=== PATIENT | female | born 1980 | race African-American/Black ===

== ENCOUNTER 2016-06-15 12:36 | Emergency (ER) | payer MEDICAID ==
[2016-06-15] MEDS ORDERED: NORMAL SALINE 1000 ML 1,000 ML IV PRN (13:48)
--- NOTE | 2016-06-15 13:48 | ER Document Report ---
ED Medical Screen (RME) - General Chief Complaint: Flank Pain Stated Complaint: NAUSEA,BACK PAIN,RIGHT SIDE PAIN Time seen by provider: 13:47 Mode of Arrival: Ambulatory Information source: Patient Notes: This is a 35-year-old female that presents to the emergency room with right flank pain radiating down into her groin. She denies any fever, positive chills TRAVEL OUTSIDE OF THE [place] IN LAST 30 DAYS: No - HPI Onset: Last week Onset/Duration: Gradual Quality of pain: Sharp Severity: Moderate Pain Level: 2 Associated Symptoms: denies: Chest pain, Dysuria, Sinus pain/drainage Exacerbated by: Denies Relieved by: Denies Similar symptoms previously: No Recently seen / treated by doctor: No - Related Data Smoking: Non-smoker Frequency of alcohol use: None Drug Abuse: None Allergies/Adverse Reactions: amoxicillin [Amoxicillin] Allergy (Verified 06/15/16 12:54) omeprazole [From Prilosec] Allergy (Verified 06/15/16 12:54) omeprazole magnesium [From Prilosec] Allergy (Verified 06/15/16 12:54) Past Medical History - General Information source: Patient - Social History Cigarette use (# per day): No Chew tobacco use (# tins/day): No Frequency of alcohol use: None Drug Abuse: None Lives with: Family Family history: Reviewed & Not Pertinent - Past Medical History Cardiac Medical History: Reports: Hx Congestive Heart Failure, Hx Hypertension Pulmonary Medical History: Reports: Hx Pneumonia Renal/ Medical History: Reports: Hx Ectopic . Denies: Hx Peritoneal Dialysis GI Medical History: Reports: Hx Gastroesophageal Reflux Disease Past Surgical History: Reports: Hx Cholecystectomy, Hx Gynecologic Surgery - right salpingectomy, Hx Tonsillectomy - adenoids, Hx Tubal Ligation - Immunizations Immunizations up to date: Yes Hx Diphtheria, Pertussis, Tetanus Vaccination: Yes - UTD Review of Systems - Review of Systems Constitutional: denies: Chills, Fever EENT: No symptoms reported Cardiovascular: No symptoms reported Respiratory: No symptoms reported Gastrointestinal: See HPI. denies: Abdomen distended, Diarrhea, Nausea, Vomiting, Poor fluid intake, Black stools, Rectal bleeding, Last bowel movement Genitourinary: Flank pain Female Genitourinary: No symptoms reported Musculoskeletal: See HPI Skin: No symptoms reported Hematologic/Lymphatic: No symptoms reported Neurological/Psychological: No symptoms reported Physical Exam - Vital signs Vitals: Temp Pulse Resp BP Pulse Ox 99.0 F 78 20 173/113 H 98 06/15/16 12:58 06/15/16 12:58 06/15/16 12:58 06/15/16 12:58 06/15/16 12:58 Notes: Physical exam: GENERAL: 35-year-old female, alert and oriented 3, no acute distress. Patient looks quite good. HEAD: Atraumatic, normocephalic. EYES: Pupils equal round and reactive to light, extraocular movements intact, sclera anicteric, conjunctiva are normal. ENT: TMs normal, nares patent, oropharynx clear without exudates. Moist mucous membranes. NECK: Normal range of motion, supple without lymphadenopathy or JVD. LUNGS: Breath sounds clear to auscultation bilaterally and equal. No wheezes rales or rhonchi. HEART: Regular rate and rhythm without murmurs, rubs or gallops. ABDOMEN: Soft, normoactive bowel sounds. No tenderness to palpation. No guarding, no rebound. No masses appreciated. Mild right CVA tenderness. EXTREMITIES: Normal range of motion, no pitting or edema. No clubbing or cyanosis. NEUROLOGICAL: Cranial nerves II through XII grossly intact. Normal speech, normal gait. PSYCH: Normal mood, normal affect. SKIN: Warm, Dry, normal turgor, no rashes or lesions noted. Course - Re-evaluation Re-evalutation: 06/15/16 16:55 Patient is been ambulating around the ER without difficulty. She does look good. I did discuss the results of the CT scan which shows no evidence of obstructive uropathy. I did tell her that the CAT scan can sometimes miss small stones so we will treat with pain medicines and encourage fluids. We did recheck her blood pressure and it's still elevated and I discussed the issue of blood pressure medicine and we will put her back on a blood pressure medicine today. She will follow-up with the [place] primary care. - Vital Signs Vital signs: Temp Pulse Resp BP Pulse Ox 98.5 F 76 18 162/102 H 100 06/15/16 16:54 06/15/16 16:54 06/15/16 16:54 06/15/16 16:54 06/15/16 16:54 - Laboratory Result Diagrams: 06/15/16 13:50 06/15/16 15:00 Laboratory results interpreted by me: 06/15/16 06/15/16 06/15/16 13:50 13:50 15:00 RDW 14.3 H Chloride 108 H Ur Leukocyte Esterase TRACE H - Diagnostic Test Radiology reviewed: Image reviewed, Reports reviewed - CT shows no obstructive uropathy. Doctor's Discharge - Discharge Clinical Impression: flank pain, hypertension Condition: Stable Disposition: HOME, SELF-CARE Instructions: Flank Pain ([facility]), High Blood Pressure ([facility]) Additional Instructions: Recommendations: Rest, drink plenty of fluids. Take pain medicine as needed: See the narcotic instruction sheet. Also take ibuprofen as needed. As we discussed, I want you to restart your blood pressure medicine. Follow-up with your primary care doctor at [facility]: Bring a copy of today's lab work and CT report with you. Return to the emergency room for any worsening pain or if the pain localizes to the right lower abdomen, fever (temperature greater than 100.5 or any concerns he getting worse. The pain medicine you're taking prescribed as a narcotic. There are several important things you should know about this medicine: 1. This medicine contains Tylenol: It is important that you do not take Tylenol (or acetaminophen) while on this medicine. Tylenol is metabolized by the liver and taking too much Tylenol (acetaminophen) can lay to liver damage and even liver failure. 2. Taking narcotics for too long can lead to physical and mental dependence. Take this medicine only if really needed and in the lowest quantity to achieve pain relief. 3. Do not drink alcohol while on this medicine. Alcohol interacts with narcotics and the combination can be dangerous. 4. Do not drive or operate machinery while on this medicine. 5. Narcotics do cause constipation, so drink plenty of fluids and daily stool softeners. Prescriptions: Lisinopril/Hydrochlorothiazide [Lisinopril-Hctz 10-12.5 mg Tab] 1 each PO DAILY #30 tablet Ondansetron HCl [Zofran 4 mg Tablet] 1 - 2 tab PO Q4H PRN #10 tablet PRN Reason: Oxycodone HCl/Acetaminophen [Percocet 5-325 mg Tablet] 1 - 2 tab PO ASDIR PRN # 25 tablet PRN Reason:
[2016-06-15 14:25] LABS: ABSOLUTE BASOPHILS # (AUTO) 0.1 10^3/uL (0.0-0.2); ABSOLUTE EOSINOPHILS # (AUTO) 0.1 10^3/uL (0.0-0.6); ABSOLUTE LYMPHOCYTES (AUTO) 3.6 10^3/uL (0.5-4.7); ABSOLUTE MONOCYTES (AUTO) 0.7 10^3/uL (0.1-1.4); ABSOLUTE NEUT (AUTO) 5.4 10^3/uL (1.7-8.2); BASOPHILS % (AUTO) 1.1 % (0-2); EOSINOPHILS % (AUTO) 1.2 % (0-6); HEMATOCRIT 40.8 % (36.0-47.0); HEMOGLOBIN 13.6 g/dL (12.0-15.5); LYMPHOCYTES % (AUTO) 36.6 % (13-45); MEAN CORPUSCULAR HEMOGLOBIN 29.3 pg (27.0-33.4); MEAN CORPUSCULAR HGB CONC 33.4 g/dL (32.0-36.0); MEAN CORPUSCULAR VOLUME 88 fl (80-97); MONOCYTES % (AUTO) 6.8 % (3-13); RED BLOOD COUNT 4.65 10^6/uL (3.72-5.28); RED CELL DISTRIBUTION WIDTH 14.3 % (11.5-14.0); SEGMENTED NEUTROPHILS % (AUTO) 54.3 % (42-78); WHITE BLOOD COUNT 9.9 10^3/uL (4.0-10.5)
[2016-06-15 14:34] LABS: APPEARANCE,URINE SLIGHTLY-CLOUDY; BILIRUBIN,URINE NEGATIVE (NEGATIVE); GLUCOSE, URINE NEGATIVE (NEGATIVE); KETONES,URINE NEGATIVE (NEGATIVE); LEUKOCYTE ESTERASE,URINE TRACE (NEGATIVE); NITRITE,URINE NEGATIVE (NEGATIVE); PROTEIN,URINE NEGATIVE (NEGATIVE); URINE SPECIFIC GRAVITY 1.027; UROBILINOGEN,URINE NEGATIVE mg/dL (<2.0)
[2016-06-15 15:34] LABS: ALANINE AMINOTRANSFERASE 23 U/L (9-52); ALBUMIN 3.9 g/dL (3.5-5.0); ALKALINE PHOSPHATASE 65 U/L (38-126); ANION GAP 11 (5-19); ASPARTATE AMINO TRANSFERASE 19 U/L (14-36); BILIRUBIN,DIRECT 0.4 mg/dL (0.0-0.4); BILIRUBIN,TOTAL 0.6 mg/dL (0.2-1.3); BLOOD UREA NITROGEN 11 mg/dL (7-20); CARBON DIOXIDE 23 mmol/L (22-30); CHLORIDE 108 mmol/L (98-107); GLUCOSE 88 mg/dL (75-110); POTASSIUM 4.7 mmol/L (3.6-5.0); SODIUM 141.5 mmol/L (137-145); TOTAL PROTEIN 7.6 g/dL (6.3-8.2)
[2016-06-15 16:01] LABS: CALCIUM 9.4 mg/dL (8.4-10.2)
[2016-06-15] MEDS ORDERED: OXYCODONE-ACETAMINOPHEN 5-325 MG TABLET PO ONE (16:12)
[2016-06-15] MEDS ORDERED: ONDANSETRON 4 MG TAB.RAPDIS PO ONE (16:12)
[2016-06-15 16:54] VITALS: BP 162/102
== END 2016-06-15 17:04 | disposition home or self-care (01) ==
LOC: ER 12:36
DX: R10.9 Unspecified abdominal pain (principal); I10 Essential (primary) hypertension; Z88.0 Allergy status to penicillin; Z88.8 Allergy status to other drugs, medicaments and biological substances; Z87.19 Personal history of other diseases of the digestive system; Z98.51 Tubal ligation status; Z90.79 Acquired absence of other genital organ(s); Z90.49 Acquired absence of other specified parts of digestive tract
CPT/HCPCS: 99284; 96360; 36415; 84702; 85025; 80053; 81001; 76380; S0119; J7030

== ENCOUNTER 2016-07-23 13:35 | Emergency (ER) | payer MEDICAID ==
[2016-07-23 13:41] VITALS: BP 163/109
--- NOTE | 2016-07-23 13:50 | ER Document Report ---
ED Medical Screen (RME) - General Chief Complaint: Breathing Difficulty Stated Complaint: DIFFICULTY BREATHING Time Seen by Provider: 07/23/16 13:44 Notes: A 35-year-old female patient who has the Mirena IUD reports 4 day history of chest pain made worse lying down on her left side, worse with breathing, worse with cough. She was seen in urgent care on Tuesday and prescribed a Z-Paco, prednisone, albuterol. I have greeted and performed a rapid initial assessment of this patient. A comprehensive ED assessment and evaluation of the patient, analysis of test results and completion of the medical decision making process will be conducted by additional ED providers. TRAVEL OUTSIDE OF THE [place] IN LAST 30 DAYS: No - Related Data Allergies/Adverse Reactions: amoxicillin [Amoxicillin] Allergy (Verified 07/23/16 13:38) omeprazole [From Prilosec] Allergy (Verified 07/23/16 13:38) omeprazole magnesium [From Prilosec] Allergy (Verified 07/23/16 13:38) Past Medical History - Social History Family history: Reviewed & Not Pertinent - Past Medical History Cardiac Medical History: Reports: Hx Congestive Heart Failure, Hx Hypertension Pulmonary Medical History: Reports: Hx Pneumonia Renal/ Medical History: Reports: Hx Ectopic . Denies: Hx Peritoneal Dialysis GI Medical History: Reports: Hx Gastroesophageal Reflux Disease Past Surgical History: Reports: Hx Cholecystectomy, Hx Gynecologic Surgery - right salpingectomy, Hx Tonsillectomy - adenoids, Hx Tubal Ligation - Immunizations Immunizations up to date: Yes Hx Diphtheria, Pertussis, Tetanus Vaccination: Yes - UTD Physical Exam - Vital signs Vitals: Temp Pulse Resp BP Pulse Ox 97.8 F 100 20 163/109 H 100 07/23/16 13:38 07/23/16 13:38 07/23/16 13:38 07/23/16 13:38 07/23/16 13:38 Course - Vital Signs Vital signs: Temp Pulse Resp BP Pulse Ox 97.8 F 100 20 163/109 H 100 07/23/16 13:38 07/23/16 13:38 07/23/16 13:38 07/23/16 13:38 07/23/16 13:38
--- NOTE | 2016-07-23 14:33 | RADIOLOGY REPORT (SQ) ---
EXAM DESCRIPTION: CHEST PA/LAT COMPLETED DATE/TIME: 07/23/2016 2:17 pm REASON FOR STUDY: Pleuritic chest pain with cough and SOB COMPARISON: None. EXAM PARAMETERS: NUMBER OF VIEWS: two views TECHNIQUE: Digital Frontal and Lateral radiographic views of the chest acquired. RADIATION DOSE: NA LIMITATIONS: none FINDINGS: LUNGS AND PLEURA: No opacities, masses or pneumothorax. No pleural effusion. MEDIASTINUM AND HILAR STRUCTURES: No masses or contour abnormalities. HEART AND VASCULAR STRUCTURES: Heart normal size. No evidence for failure. BONES: No acute findings. HARDWARE: None in the chest. OTHER: No other significant finding. IMPRESSION: NO SIGNIFICANT RADIOGRAPHIC FINDING IN THE CHEST. TECHNICAL DOCUMENTATION: JOB ID: [id number] [employer]- All Rights Reserved
--- NOTE | 2016-07-23 16:50 | ER Document Report ---
ED Respiratory Problem - General Chief Complaint: Breathing Difficulty Stated Complaint: DIFFICULTY BREATHING Time Seen by Provider: 07/23/16 13:44 Mode of Arrival: Ambulatory Information source: Patient Notes: 35-year-old patient presents to ED for chest pain made worse when she lays down on the left side. She was seen at the urgent care on Tuesday and prescribed a Z-Paco prednisone and albuterol TRAVEL OUTSIDE OF THE [place] IN LAST 30 DAYS: No - HPI Patient complains to provider of: Cough, Short of breath Onset: Other - 4- 5 days Duration: Continuous Initiating Event: URI Quality of pain: Achy Severity: Moderate Pain Level: 4 Chest pain/discomfort: Worse with deep breaths Cough: Nonproductive Sputum amount: None Associated symptoms: Congestion, Cough, PND, Runny nose, Sinus pain/pressure, Short of breath. denies: Fever Similar symptoms previously: Yes Recently seen / treated by doctor: Yes - Related Data Allergies/Adverse Reactions: amoxicillin [Amoxicillin] Allergy (Verified 07/23/16 13:38) omeprazole [From Prilosec] Allergy (Verified 07/23/16 13:38) omeprazole magnesium [From Prilosec] Allergy (Verified 07/23/16 13:38) Past Medical History - General Information source: Patient - Social History Smoking Status: Current Every Day Smoker Cigarette use (# per day): Yes - ppd Chew tobacco use (# tins/day): No Smoking Education Provided: Yes - @ 2 min Frequency of alcohol use: None Drug Abuse: None Lives with: Family - children Family History: Reviewed & Not Pertinent Patient has suicidal ideation: No Patient has homicidal ideation: No - Past Medical History Cardiac Medical History: Reports: Hx Congestive Heart Failure - at childbirth, Hx Hypertension Pulmonary Medical History: Reports: Hx Pneumonia EENT Medical History: Reports: None Neurological Medical History: Reports: None Endocrine Medical History: Reports: None Renal/ Medical History: Reports: Hx Ectopic Malignancy Medical History: Reports: None GI Medical History: Reports: Hx Gastroesophageal Reflux Disease Musculoskeltal Medical History: Reports None Skin Medical History: Reports None Psychiatric Medical History: Reports: None Traumatic Medical History: Reports: None Infectious Medical History: Reports: None Past Surgical History: Reports: Hx Cholecystectomy, Hx Gynecologic Surgery - right salpingectomy due to hemorrhage from tubal ligation, Hx Tonsillectomy - adenoids, Hx Tubal Ligation - Immunizations Immunizations up to date: Yes Hx Diphtheria, Pertussis, Tetanus Vaccination: Yes - UTD Review of Systems - Review of Systems Constitutional: Recent illness EENT: Nose discharge, Sinus pressure, Sinus discharge, Throat pain Cardiovascular: No symptoms reported Respiratory: Cough Gastrointestinal: No symptoms reported Genitourinary: No symptoms reported Female Genitourinary: No symptoms reported Musculoskeletal: No symptoms reported Skin: No symptoms reported Hematologic/Lymphatic: No symptoms reported Neurological/Psychological: No symptoms reported -: Yes All other systems reviewed and negative Physical Exam - Vital signs Vitals: Temp Pulse Resp BP Pulse Ox 97.8 F 100 20 163/109 H 100 07/23/16 13:38 07/23/16 13:38 07/23/16 13:38 07/23/16 13:38 07/23/16 13:38 Interpretation: Hypertensive - General General appearance: Appears well, Alert - HEENT Head: Normocephalic, Atraumatic Eyes: Normal Pupils: PERRL - Respiratory Respiratory status: No respiratory distress Chest status: Tender, Pain with cough Breath sounds: Nonproductive cough. No: Productive cough, Rales, Rhonchi, Stridor, Wheezing Chest palpation: Normal - Cardiovascular Rhythm: Regular Heart sounds: Normal auscultation Murmur: No - Abdominal Inspection: Normal Distension: No distension Bowel sounds: Normal Tenderness: Nontender Organomegaly: No organomegaly - Back Back: Normal, Nontender - Extremities General upper extremity: Normal inspection, Nontender, Normal color, Normal ROM , Normal temperature General lower extremity: Normal inspection, Nontender, Normal color, Normal ROM , Normal temperature, Normal weight bearing. No: Lei's sign - Neurological Neuro grossly intact: Yes Cognition: Normal Orientation: AAOx4 Torri Coma Scale Eye Opening: Spontaneous Torri Coma Scale Verbal: Oriented Torri Coma Scale Motor: Obeys Commands [place] Coma Scale Total: 15 Speech: Normal Motor strength normal: LUE, RUE, LLE, RLE Sensory: Normal - Psychological Associated symptoms: Normal affect, Normal mood - Skin Skin Temperature: Warm Skin Moisture: Dry Skin Color: Normal Course - Re-evaluation Re-evalutation: 07/23/16 21:59 Discussed x-ray with patient report given to patient to follow-up with her primary doctor. X-ray showed nothing acute. Patient instructed to complete her medications that the doctor prescribed her. - Vital Signs Vital signs: Temp Pulse Resp BP Pulse Ox 97.8 F 100 20 163/109 H 100 07/23/16 13:38 07/23/16 13:38 07/23/16 13:38 07/23/16 13:38 07/23/16 13:38 - Diagnostic Test Radiology reviewed: Image reviewed, Reports reviewed Discharge - Discharge Clinical Impression: URI (upper respiratory infection) Qualifiers: URI type: unspecified URI Qualified Code(s): J06.9 - Acute upper respiratory infection, unspecified Condition: Stable Disposition: HOME, SELF-CARE Instructions: Family Physicians / Practices Additional Instructions: UPPER RESPIRATORY ILLNESS: You have a viral infection of the respiratory passages -- a "cold." This common infection causes nasal congestion, drainage, and often sore throat and cough. It is highly contagious. The disease usually lasts about 10 to 14 days. There is no "cure" for the viral infection -- it must run its course. If there is a complication, such as bacterial infection in the nose, sinuses, middle ear, or bronchial tubes, antibiotics may be required. The antibiotics won't affect the virus. Drink plenty of fluids. A humidifier may help. An expectorant medication or decongestant may make you more comfortable. Use acetaminophen or ibuprofen for fever or aches. See the doctor if fever persists over two days, if there is any significant worsening of your symptoms, or if you simply fail to improve as expected. Acetaminophen Acetaminophen may be taken for pain relief or fever control. It's much safer than aspirin, offering a wider range of "safe" dosages. It is safe during . Some brand names are Tylenol, Panadol, Datril, Anacin 3, Tempra, and Liquiprin. Acetaminophen can be repeated every four hours. The following are maximum recommended dosages: WEIGHT Dose Drops Elixir Chewable( 80mg) (LBS.) drprs=droppers tsp=teaspoon 6 40 mg .4 ml (1/2) 6-11 80 mg .8 ml (full) 1/2 tsp 1 tab 12-16 120 mg 1 1/2 drprs 3/4 tsp 1 1/2 tabs 17-23 160 mg 2 drprs 1 tsp 2 tabs 24-30 240 mg 3 drprs 1 1/2 tsp 3 tabs 30-35 320 mg 2 tsp 4 tabs 36-41 360 mg 2 1/4 tsp 4 1 /2 tabs 42-47 400 mg 2 1/2 tsp 5 tabs 48-53 480 mg 3 tsp 6 tabs 54-59 520 mg 3 1/4 tsp 6 1 /2 tabs 60-64 560 mg 3 1/2 tsp 7 tabs 65-70 600 mg 3 3/4 tsp 7 1 /2 tabs 71-76 640 mg 4 tsp 8 tabs 77-82 720 mg 4 1/2 tsp 9 tabs 83-88 800 mg 5 tsp 10 tabs >89 pounds or adults 650 mg to 900 mg Acetaminophen can be repeated every four hours. Maximum daily dose not to exceed 4000 mg. These maximum recommended dosages are slightly higher than the dosages written on the product container, but these dosages are very safe and well below the toxic dosage for acetaminophen. SMOKING: If you smoke, you should stop smoking. The tar and chemicals in cigarette smoke are harmful. Smoking has been shown to cause: emphysema chronic bronchitis lung cancer mouth and throat cancer stomach and pancreas cancer premature aging defects In addition, smoking increases ear and lung infections in children of smokers. Please continue to take your Z-Paco prednisone and albuterol inhaler as prescribed by the urgent care on Tuesday. Please complete your antibiotics and your prednisone. Follow-up with the urgent care or Tuesday if you continue to have a cough. Follow up with your primary doctor for your blood pressure on Tuesday please smoke as little as possible and tell then refrain from caffeine. FOLLOW-UP CARE: If you have been referred to a physician for follow-up care, call the physician s office for an appointment as you were instructed or within the next two days. If you experience worsening or a significant change in your symptoms, notify the physician immediately or return to the Emergency Department at any time for re-evaluation. Forms: Elevated Blood Pressure
== END 2016-07-23 16:26 | disposition home or self-care (01) ==
LOC: ER 13:35
DX: J06.9 Acute upper respiratory infection, unspecified (principal); R06.02 Shortness of breath; F17.210 Nicotine dependence, cigarettes, uncomplicated
CPT/HCPCS: 36415; 71020; 85379; 99284

== ENCOUNTER 2016-08-31 15:36 | Emergency (ER) | payer MEDICAID ==
--- NOTE | 2016-08-31 17:46 | ER Document Report ---
HPI - HPI Pain Level: 4 Notes: Patient is a 35-year-old female presents the ED complaining of right knee pain and locking 1 week, but patient has had discomfort and pain in that knee for months. Patient states that the locking started after playing volleyball last week. She denies any radiation of her pain. The pain is described as sharp/ tightness primarily to the lateral posterior side. Patient states that standing for prolonged periods, sitting for prolonged periods, or having her leg bent for prolonged period otherwise will increase her symptoms. She has not had any [id number] meds for her symptoms otherwise. She has not had her knee evaluated. Patient states she still able to ambulate but does have some discomfort in that knee. She has not noticed any swelling or bruising to the knee. She does not take any medications daily. Past medical history significant for hypertension. Patient states that she does smoke but denies any illicit drug use. PCM is also primary care. Denies any fever, headache, chest pain, palpitations, cough, wheeze, shortness of breath, abdominal pain, nausea/vomiting/diarrhea, dysuria, muscle paralysis/weakness, numbness/tingling , back pain, or rash. - ROS Notes: REVIEW OF SYSTEMS: CONSTITUTIONAL : Denies fever, chills, or sweats. Denies recent illness. EENT: Denies eye, ear, throat, or mouth pain or symptoms. Denies nasal or sinus congestion or discharge. Denies throat, tongue, or mouth swelling or difficulty swallowing. CARDIOVASCULAR: Denies chest pain. Denies palpitations or racing or irregular heart beat. Denies ankle edema. RESPIRATORY: Denies cough, cold, or chest congestion. Denies shortness of breath, difficulty breathing, or wheezing. GASTROINTESTINAL: Denies abdominal pain or distention. Denies nausea, vomiting , or diarrhea. Denies blood in vomitus, stools, or per rectum. Denies black, tarry stools. Denies constipation. GENITOURINARY: Denies difficulty urinating, painful urination, burning, frequency, blood in urine, or discharge. MUSCULOSKELETAL: see hpi SKIN: Denies rash, lesions or sores. NEUROLOGICAL: Denies confusion or altered mental status. Denies passing out or loss of consciousness. Denies dizziness or lightheadedness. Denies headache. Denies weakness or paralysis or loss of use of either side. Denies problems with gait or speech. Denies sensory loss, numbness, or tingling. ALL OTHER SYSTEMS REVIEWED AND NEGATIVE. Dictation was performed using [employer] voice recognition software - REPRODUCTIVE Reproductive: DENIES: : - DERM Skin Color: Normal Past Medical History - Social History Smoking Status: Current Every Day Smoker Family History: Reviewed & Not Pertinent Patient has suicidal ideation: No Patient has homicidal ideation: No - Past Medical History Cardiac Medical History: Reports: Hx Congestive Heart Failure - at childbirth, Hx Hypertension Pulmonary Medical History: Reports: Hx Pneumonia Renal/ Medical History: Reports: Hx Ectopic . Denies: Hx Peritoneal Dialysis GI Medical History: Reports: Hx Gastroesophageal Reflux Disease Past Surgical History: Reports: Hx Cholecystectomy, Hx Gynecologic Surgery - right salpingectomy due to hemorrhage from tubal ligation, Hx Tonsillectomy - adenoids, Hx Tubal Ligation - Immunizations Immunizations up to date: Yes Hx Diphtheria, Pertussis, Tetanus Vaccination: Yes - UTD Vertical Provider Document - CONSTITUTIONAL Agree With Documented VS: Yes Notes: PHYSICAL EXAMINATION: GENERAL: Well-appearing, well-nourished and in no acute distress. LUNGS: Breath sounds clear to auscultation bilaterally and equal. No wheezes rales or rhonchi. HEART: Regular rate and rhythm without murmurs, rubs, gallops. Musculoskeletal: LE's bl: FROM to passive/active. Strength 5+/5. No focal deficit Rt knee: FROM/Strength 5+/5. difficult to fully assess ligaments/meniscus due to patient's large knee size and resistance. No obvious abnormal findings on eval of ligaments and meninscus (Evaristo) today. + mild tenderness to posterolateral rt knee. No anterior tenderness, effusion, erythema, or warmth. Patellar grind neg. Extremities: No cyanosis, clubbing, or edema b/l. Peripheral pulses 2+. Capillary refill less than 3 seconds. NEUROLOGICAL: Normal speech, normal gait. Normal sensory, motor exams. Reflexes 2+ b/l. PSYCH: Normal mood, normal affect. SKIN: Warm, Dry, normal turgor, no rashes or lesions noted. - INFECTION CONTROL TRAVEL OUTSIDE OF THE [place] IN LAST 30 DAYS: No - RESPIRATORY O2 Sat by Pulse Oximetry: 98 Course - Re-evaluation Re-evalutation: 08/31/16 17:45 Patient is an afebrile, well-hydrated, 35-year-old female presents the ED with right knee pain, ?internal involvement of the knee vs loose body etiology. Vitals are stable. PE otherwise unremarkable at this time. Low suspicion for any sepsis, septic joint, DVT based on H&P today. X-ray of the right knee was unremarkable for any acute pathology aside from loose bodies (see report). Conservative measures for symptoms as reviewed. Patient still able to ambulate , so we will hold off from any crutches or immobilization. I will send her home with voltaren gel to use as directed. Recheck with her PCM in 2-3 days. Consider consult orthopedics and physical therapy. Return to ED with any worsening/concerning symptoms otherwise as reviewed in discharge. Patient is agreement. - Vital Signs Vital signs: Temp Pulse Resp BP Pulse Ox 98.9 F 79 13 189/99 H 98 08/31/16 15:43 08/31/16 15:43 08/31/16 15:43 08/31/16 15:43 08/31/16 15:43 Discharge - Discharge Clinical Impression: Right knee pain Qualifiers: Chronicity: acute Qualified Code(s): M25.561 - Pain in right knee Condition: Stable Disposition: HOME, SELF-CARE Instructions: Ice & Elevation ([facility]), Sprained Knee ([facility]) Additional Instructions: Rest, Ice, Compression, Elevation Tylenol/ibuprofen as needed Light stretches daily Strength exercises as able Moist heat and massage may help F/u with your PCP in 2-3 days for a recheck Consider consult(s) with Orthopedics, physical therapy for ongoing/worsening symptoms Return to the ED with any worsening symptoms and/or development of fever, headache, chest pain, palpitations, syncope, shortness of breath, trouble breathing, abdominal pain, n/v/d, muscle weakness/paralysis, numbness/tingling, redness, swelling, abscess, streaks, or other worsening symptoms that are concerning to you. Prescriptions: Diclofenac Sodium [Voltaren] 4 gm TP QID PRN #100 gel..gm. PRN Reason: Forms: Elevated Blood Pressure, Smoking Cessation Education Referrals: [facility] [Provider Group] - Follow up in 1 week
--- NOTE | 2016-08-31 18:12 | RADIOLOGY REPORT (SQ) ---
EXAM DESCRIPTION: KNEE RIGHT 4 VIEWS COMPLETED DATE/TIME: 08/31/2016 5:45 pm REASON FOR STUDY: RIGHT knee pain, locking, posterior primary COMPARISON: 12/24/2013 NUMBER OF VIEWS: Four views. TECHNIQUE: AP, lateral, and both oblique radiographic images acquired of the right knee. LIMITATIONS: None. FINDINGS: MINERALIZATION: Normal. BONES: There is no fracture or dislocation. A small exostosis arises from the proximal tibial metaph ysis. JOINT: There is mild narrowing of the lateral joint compartment with marginal osteophytes. Several o ssified loose bodies are present, possibly representing synovial calcifications. There is not appear to be a significant joint effusion SOFT TISSUES: No soft tissue swelling. No radio-opaque foreign body. OTHER: No other significant finding. IMPRESSION: Degenerative joint disease with loose bodies as described. TECHNICAL DOCUMENTATION: JOB ID: [id number] [employer]- All Rights Reserved
[2016-08-31 18:31] VITALS: BP 148/97
== END 2016-08-31 18:31 | disposition home or self-care (01) ==
LOC: ER 15:36
DX: M23.41 Loose body in knee, right knee (principal); M25.561 Pain in right knee; I10 Essential (primary) hypertension; F17.200 Nicotine dependence, unspecified, uncomplicated
CPT/HCPCS: 99283

== ENCOUNTER 2017-11-15 09:37 | Emergency (ER) | payer MEDICAID ==
[2017-11-15 10:10] LABS: APPEARANCE,URINE SLIGHTLY-CLOUDY; BILIRUBIN,URINE NEGATIVE (NEGATIVE); COLOR,URINE YELLOW; GLUCOSE, URINE NEGATIVE (NEGATIVE); KETONES,URINE NEGATIVE (NEGATIVE); LEUKOCYTE ESTERASE,URINE SMALL (NEGATIVE); NITRITE,URINE NEGATIVE (NEGATIVE); PROTEIN,URINE NEGATIVE (NEGATIVE); URINE SPECIFIC GRAVITY 1.023
[2017-11-15] MEDS ORDERED: HYDROMORPHONE HCL INJ/PF 2 MG/ML AMPULE IV ONE (10:10)
[2017-11-15] MEDS ORDERED: ONDANSETRON HCL INJ/PF 4 MG/2 ML SDV IV ONE (10:11)
--- NOTE | 2017-11-15 10:13 | ER Document Report ---
ED Medical Screen (RME) - General Chief Complaint: Flank Pain Stated Complaint: BACK PAIN Time Seen by Provider: 11/15/17 10:08 Mode of Arrival: Ambulatory Information source: Patient Notes: 37-year-old female presents with complaint of right flank pain and dysuria that started 4 days prior to arrival. Patient states that a urinalysis performed at her doctor's office revealed nitrites and she was placed on an antibiotic. She states the dysuria has improved but she is still experiencing some significant right flank pain that she describes as sharp, intermittent with radiation to the right lower quadrant. Patient has had associated nausea, vomiting. I have greeted and performed a rapid initial assessment of this patient. A comprehensive ED assessment and evaluation of the patient, analysis of test results and completion of medical decision making process we will be contacted by additional ED providers. PHYSICAL EXAMINATION: Vital signs reviewed-hypertensive, afebrile GENERAL: Mild distress LUNGS: No respiratory distress Musculoskeletal: Normal range of motion NEUROLOGICAL: Normal speech, normal gait. PSYCH: Normal mood, normal affect. SKIN: Warm, Dry, normal turgor, no rashes or lesions noted. TRAVEL OUTSIDE OF THE [place] IN LAST 30 DAYS: No - HPI Onset: Other Onset/Duration: Gradual, Persistent, Worse Quality of pain: Stabbing Severity: Moderate Associated Symptoms: Nausea Exacerbated by: Movement Relieved by: Denies Similar symptoms previously: No Recently seen / treated by doctor: No - Related Data Smoking: Cigarettes Frequency of alcohol use: None Drug Abuse: None Allergies/Adverse Reactions: amoxicillin [Amoxicillin] Allergy (Verified 11/15/17 09:39) BLISTER IN LIPS diclofenac [From Voltaren] Allergy (Verified 11/15/17 09:39) omeprazole [From Prilosec] Allergy (Verified 11/15/17 09:39) Hives Past Medical History - Social History Family history: Reviewed & Not Pertinent - Past Medical History Cardiac Medical History: Reports: Hx Congestive Heart Failure - at childbirth, Hx Hypertension - "WATCHING IT" Denies: Hx Coronary Artery Disease, Hx Heart Attack Pulmonary Medical History: Reports: Hx Pneumonia Denies: Hx Asthma, Hx Bronchitis, Hx COPD Neurological Medical History: Denies: Hx Cerebrovascular Accident, Hx Seizures Renal/ Medical History: Reports: Hx Ectopic . Denies: Hx Peritoneal Dialysis GI Medical History: Reports: Hx Gastroesophageal Reflux Disease Musculoskeltal Medical History: Denies Hx Arthritis Past Surgical History: Reports: Hx Cholecystectomy, Hx Gynecologic Surgery - right salpingectomy due to hemorrhage from tubal ligation, Hx Tonsillectomy - adenoids, Hx Tubal Ligation - Immunizations Immunizations up to date: Yes Hx Diphtheria, Pertussis, Tetanus Vaccination: Yes - UTD History of Influenza Vaccine for 11/2016 - 04/2017 Season: Refused Physical Exam - Vital signs Vitals: Temp Pulse Resp BP Pulse Ox 98.9 F 78 20 169/115 H 100 11/15/17 09:50 11/15/17 09:50 11/15/17 09:50 11/15/17 09:50 11/15/17 09:50 Course - Vital Signs Vital signs: Temp Pulse Resp BP Pulse Ox 98.9 F 78 20 169/115 H 100 11/15/17 09:50 11/15/17 09:50 11/15/17 09:50 11/15/17 09:50 11/15/17 09:50 Doctor's Discharge - Discharge Referrals: ANA ROSA SABILLON MD [Primary Care Provider] - Follow up as needed
[2017-11-15 11:00] LABS: ABSOLUTE BASOPHILS # (AUTO) 0.1 10^3/uL (0.0-0.2); ABSOLUTE EOSINOPHILS # (AUTO) 0.1 10^3/uL (0.0-0.6); ABSOLUTE MONOCYTES (AUTO) 0.4 10^3/uL (0.1-1.4); ABSOLUTE NEUT (AUTO) 5.5 10^3/uL (1.7-8.2); BASOPHILS % (AUTO) 0.8 % (0-2); EOSINOPHILS % (AUTO) 1.3 % (0-6); HEMOGLOBIN 13.4 g/dL (12.0-15.5); LYMPHOCYTES % (AUTO) 32.5 % (13-45); MEAN CORPUSCULAR HEMOGLOBIN 30.1 pg (27.0-33.4); MEAN CORPUSCULAR HGB CONC 33.5 g/dL (32.0-36.0); MEAN CORPUSCULAR VOLUME 90 fl (80-97); MONOCYTES % (AUTO) 4.9 % (3-13); PLATELET COUNT 259 10^3/uL (150-450); RED BLOOD COUNT 4.45 10^6/uL (3.72-5.28); RED CELL DISTRIBUTION WIDTH 13.9 % (11.5-14.0); SEGMENTED NEUTROPHILS % (AUTO) 60.5 % (42-78); TOTAL CELLS COUNTED % (AUTO) 100 %; WHITE BLOOD COUNT 9.2 10^3/uL (4.0-10.5)
--- NOTE | 2017-11-15 12:03 | ER Document Report ---
ED GI/ - General Mode of Arrival: Ambulatory Information source: Patient TRAVEL OUTSIDE OF THE [place] IN LAST 30 DAYS: No <ANETTE ARCHIBALD - Last Filed: 11/15/17 16:58> <SILVIA HUMPHREYS - Last Filed: 11/15/17 17:02> - General Chief Complaint: Flank Pain Stated Complaint: BACK PAIN Time Seen by Provider: 11/15/17 10:08 Notes: 37-year-old female who presents to the emergency department today with complaints of right flank pain that radiates around to her right lower quadrant. Patient states she was diagnosed with a UTI on Tuesday and started Cipro Tuesday which she states has not really seemed to change her symptoms. Patient describes the pain as dull then sharp then dull again. Patient states she has had urinary frequency as well. (ANETTE ARCHIBALD) - Related Data Allergies/Adverse Reactions: amoxicillin [Amoxicillin] Allergy (Verified 11/15/17 10:13) BLISTER IN LIPS diclofenac [From Voltaren] Allergy (Verified 11/15/17 10:13) omeprazole [From Prilosec] Allergy (Verified 11/15/17 10:13) Hives Past Medical History - General Information source: Patient - Social History Smoking Status: Current Every Day Smoker Cigarette use (# per day): Yes Chew tobacco use (# tins/day): No Frequency of alcohol use: None Drug Abuse: None Family History: Reviewed & Not Pertinent Patient has suicidal ideation: No Patient has homicidal ideation: No - Past Medical History Cardiac Medical History: Reports: Hx Congestive Heart Failure - at childbirth, Hx Hypertension - "WATCHING IT" Pulmonary Medical History: Reports: Hx Pneumonia Renal/ Medical History: Reports: Hx Ectopic GI Medical History: Reports: Hx Gastroesophageal Reflux Disease Past Surgical History: Reports: Hx Cholecystectomy, Hx Gynecologic Surgery - right salpingectomy due to hemorrhage from tubal ligation, Hx Tonsillectomy - adenoids, Hx Tubal Ligation - Immunizations Immunizations up to date: Yes Hx Diphtheria, Pertussis, Tetanus Vaccination: Yes - UTD <ANETTE ARCHIBALD - Last Filed: 11/15/17 16:58> Review of Systems - Review of Systems Constitutional: No symptoms reported EENT: No symptoms reported Cardiovascular: No symptoms reported Respiratory: No symptoms reported Gastrointestinal: See HPI, Abdominal pain - RLQ Genitourinary: See HPI, Frequency, Flank pain - right Female Genitourinary: No symptoms reported Musculoskeletal: No symptoms reported Skin: No symptoms reported Hematologic/Lymphatic: No symptoms reported Neurological/Psychological: No symptoms reported -: Yes All other systems reviewed and negative <ANETTE ARCHIBALD - Last Filed: 11/15/17 16:58> - Vital signs Vitals: Temp Pulse Resp BP Pulse Ox 98.9 F 78 20 169/115 H 100 11/15/17 09:50 11/15/17 09:50 11/15/17 09:50 11/15/17 09:50 11/15/17 09:50 - Notes Notes: PHYSICAL EXAM GENERAL: Alert, interacts well. No acute distress. Obese. HEAD: Normocephalic, atraumatic. EYES: Pupils equal, round, and reactive to light. Extraocular movements intact. ENT: Oral mucosa moist, tongue midline. NECK: Full range of motion. Supple. Trachea midline. LUNGS: Clear to auscultation bilaterally, no wheezes, rales, or rhonchi. No respiratory distress. HEART: Regular rate and rhythm. No murmurs, gallops, or rubs. ABDOMEN: Soft, non-tender. Non-distended. Bowel sounds present in all 4 quadrants. No guarding, rigidity, or rebound. BACK: No CVA tenderness to percussion. EXTREMITIES: Moves all 4 extremities spontaneously. No edema, radial and dorsalis pedis pulses 2/4 bilaterally. No cyanosis. NEUROLOGICAL: Alert and oriented x3. Normal speech. PSYCH: Normal affect, normal mood. SKIN: Warm, dry, normal turgor. No rashes or lesions noted. (ANETTE ARCHIBALD) Course - Laboratory Result Diagrams: 11/15/17 10:46 11/15/17 11:57 <ANETTE ARCHIBALD - Last Filed: 11/15/17 16:58> - Laboratory Result Diagrams: 11/15/17 10:46 11/15/17 11:57 <SILVIA HUMPHREYS - Last Filed: 11/15/17 17:02> - Re-evaluation Re-evalutation: 11/15/17 13:33 CBC unremarkable, BMP unremarkable, urinalysis shows persistent small leukocyte esterase and 2+ bacteria but there are some squamous epithelial cells, this may be contaminated, EKG hCG is negative, I did perform a CAT scan as her description is of sharp stabbing pain that started around her kidney and is now migrating along her right flank into her right lower quadrant. Is there is no evidence of either kidney stone or appendicitis on this CAT scan. Patient likely still has persistent irritation of the ureter. The Cipro does not appear to be helping completely, patient will be switched from Cipro to Keflex and discharged home with Pyridium. (SILVIA HUMPHREYS) - Vital Signs Vital signs: Temp Pulse Resp BP Pulse Ox 97.9 F 74 20 180/95 H 99 11/15/17 13:56 11/15/17 13:56 11/15/17 13:56 11/15/17 13:56 11/15/17 13:56 - Laboratory Laboratory results interpreted by me: 11/15/17 09:40 Urine Urobilinogen 2.0 H Ur Leukocyte Esterase SMALL H Discharge <ANETTE ARCHIBALD - Last Filed: 11/15/17 16:58> <SILVIA HUMPHREYS - Last Filed: 11/15/17 17:02> - Discharge Clinical Impression: UTI (urinary tract infection) Qualifiers: Urinary tract infection type: acute pyelonephritis Qualified Code(s): N10 - Acute pyelonephritis Condition: Stable Disposition: HOME, SELF-CARE Additional Instructions: You appear to still have a urinary tract infection that has gone to your kidneys. There is no evidence of blood in your urine and there is no evidence of appendicitis or kidney stone on your CAT scan. You do not need to be hospitalized. We simply need to switch you to a new antibiotic. Please stop taking her ciprofloxacin and start taking your Keflex. These take this until it is gone. Please return to the emergency department for any new or concerning symptoms. We have also sent your urine for culture. If it grows out something that is resistant to the antibiotics we have prescribed we will call you and change the antibiotic. Prescriptions: Cephalexin Monohydrate [Keflex 500 mg Capsule] 1,000 mg PO Q12H #28 capsule Referrals: ANA ROSA SABILLON MD [Primary Care Provider] - Follow up as needed Scribe Attestation: 11/15/17 17:02 I personally performed the services described in the documentation, reviewed and edited the documentation which was dictated to the scribe in my presence, and it accurately records my words and actions. (SILVIA HUMPHREYS) Scribe Documentation - Scribe Written by Sharmilaibcain:: Mari Majano, 11/15/2017 1453 acting as scribe for :: Elizabeth <ANETTE ARCHIBALD - Last Filed: 11/15/17 16:58>
[2017-11-15 12:29] LABS: ANION GAP 9 (5-19); BLOOD UREA NITROGEN 17 mg/dL (7-20); CALCIUM 9.8 mg/dL (8.4-10.2); CARBON DIOXIDE 26 mmol/L (22-30); CHLORIDE 103 mmol/L (98-107); GLUCOSE 102 mg/dL (75-110); POTASSIUM 4.4 mmol/L (3.6-5.0); SODIUM 138.2 mmol/L (137-145)
--- NOTE | 2017-11-15 12:53 | RADIOLOGY REPORT (SQ) ---
EXAM DESCRIPTION: CT LTD RENAL STONE PROTOCOL ON COMPLETED DATE/TIME: 11/15/2017 12:28 pm REASON FOR STUDY: right flank pain, worsening for 5 days COMPARISON: CT abdomen pelvis 06/15/2016 TECHNIQUE: CT scan of the abdomen and pelvis performed without intravenous or oral contrast. Images reviewed with lung, soft tissue, and bone windows. Reconstructed coronal and sagittal MPR images revi ewed. All images stored on PACS. All CT scanners at this facility use dose modulation, iterative reconstruction, and/or weight based d osing when appropriate to reduce radiation dose to as low as reasonably achievable (ALARA). [facility]: Dose Right [facility]: CareDose [facility]: Dose Right [facility]: Teradose 4D [facility]: Smart Indisys RADIATION DOSE: CT Rad equipment meets quality standard of care and radiation dose reduction techniq ues were employed. CTDIvol: 19.2 mGy. DLP: 1104 mGy-cm.mGy. LIMITATIONS: None. FINDINGS: LOWER CHEST: No significant findings. No nodules or infiltrates. NON-CONTRASTED LIVER, SPLEEN, ADRENALS: Evaluation limited by lack of IV contrast. No identified sign ificant masses. PANCREAS: No masses. No peripancreatic inflammatory changes. GALLBLADDER: Surgically absent RIGHT KIDNEY AND URETER: No suspicious masses. Assessment limited by lack of IV contrast. No signif icant calcifications. No hydronephrosis or hydroureter. LEFT KIDNEY AND URETER: No suspicious masses. Assessment limited by lack of IV contrast. No signifi cant calcifications. No hydronephrosis or hydroureter. AORTA AND RETROPERITONEUM: No aneurysm. No retroperitoneal masses or adenopathy. BOWEL AND PERITONEAL CAVITY: No obvious masses or inflammatory changes. No free fluid. APPENDIX: Normal. PELVIS, BLADDER, AND ABDOMINAL WALL:No abnormal masses. No free fluid. Bladder normal. Normal size f emale pelvic organs. IUD in the endometrial canal. Tiny fat containing umbilical hernia axial image 56 BONES: No significant findings. OTHER: No other significant finding. IMPRESSION: NO SIGNIFICANT OR ACUTE PROCESS IN THE ABDOMEN OR PELVIS. COMMENT: Quality ID # [id number]: Final reports with documentation of one or more dose reduction techniques (e.g., Automated exposure control, adjustment of the mA and/or kV according to patient size, use of iterative reconstruction technique) TECHNICAL DOCUMENTATION: JOB ID: [id number]- All Rights Reserved Reading location - IP/workstation name: [email or web address]
[2017-11-15] MEDS ORDERED: PHENAZOPYRIDINE HCL 200 MG TABLET PO ONE (13:36)
[2017-11-15 13:57] VITALS: BP 180/95
[2017-11-15] MEDS ORDERED: KETOROLAC TROMETHAMINE 60 MG/2 ML SDV IM ONE (14:10)
== END 2017-11-15 14:23 | disposition home or self-care (01) ==
LOC: ER 09:37
DX: N10 Acute pyelonephritis (principal); R10.31 Right lower quadrant pain; E66.9 Obesity, unspecified; F17.210 Nicotine dependence, cigarettes, uncomplicated; I50.9 Heart failure, unspecified; I10 Essential (primary) hypertension; Z88.0 Allergy status to penicillin; Z90.49 Acquired absence of other specified parts of digestive tract
CPT/HCPCS: 99284; 96372; 96374; 36415; 87086; 85025; 81025; 80048; 81001; 76380; J1885; J1170; J3490; J2405

== ENCOUNTER 2017-11-26 15:31 | Emergency (ER) | payer MEDICAID ==
[2017-11-26] MEDS ORDERED: HYDROCODONE/ACETAMINOPHEN 5-325 MG TABLET PO ONE (15:45)
--- NOTE | 2017-11-26 15:47 | ER Document Report ---
ED Medical Screen (RME) - General Chief Complaint: Flank Pain Stated Complaint: BACK PAIN Time Seen by Provider: 11/26/17 15:44 Mode of Arrival: Ambulatory Information source: Patient TRAVEL OUTSIDE OF THE [place] IN LAST 30 DAYS: No - HPI Patient complains to provider of: flank/LBP Onset: Other - pt seen here last week for LBP/Flank pain with neg CT. States was given Abx but pain has recurred in similar place (Lumbar area bilaterally) - Related Data Allergies/Adverse Reactions: amoxicillin [Amoxicillin] Allergy (Verified 11/26/17 15:33) BLISTER IN LIPS diclofenac [From Voltaren] Allergy (Verified 11/26/17 15:33) omeprazole [From Prilosec] Allergy (Verified 11/26/17 15:33) Hives Past Medical History - Social History Family history: Reviewed & Not Pertinent - Past Medical History Cardiac Medical History: Reports: Hx Congestive Heart Failure - at childbirth, Hx Hypertension - "WATCHING IT" Denies: Hx Coronary Artery Disease, Hx Heart Attack Pulmonary Medical History: Reports: Hx Pneumonia Denies: Hx Asthma, Hx Bronchitis, Hx COPD Neurological Medical History: Denies: Hx Cerebrovascular Accident, Hx Seizures Renal/ Medical History: Reports: Hx Ectopic . Denies: Hx Peritoneal Dialysis GI Medical History: Reports: Hx Gastroesophageal Reflux Disease Musculoskeltal Medical History: Denies Hx Arthritis Past Surgical History: Reports: Hx Cholecystectomy, Hx Gynecologic Surgery - right salpingectomy due to hemorrhage from tubal ligation, Hx Tonsillectomy - adenoids, Hx Tubal Ligation - Immunizations Immunizations up to date: Yes Hx Diphtheria, Pertussis, Tetanus Vaccination: Yes - UTD History of Influenza Vaccine for 11/2016 - 04/2017 Season: Refused Physical Exam - Vital signs Vitals: Temp Pulse Resp BP Pulse Ox 98.8 F 89 16 188/101 H 97 11/26/17 15:36 11/26/17 15:36 11/26/17 15:36 11/26/17 15:36 11/26/17 15:36 Course - Vital Signs Vital signs: Temp Pulse Resp BP Pulse Ox 98.8 F 89 16 188/101 H 97 11/26/17 15:36 11/26/17 15:36 11/26/17 15:36 11/26/17 15:36 11/26/17 15:36 Doctor's Discharge - Discharge Referrals: ANA ROSA SABILLON MD [Primary Care Provider] - Follow up as needed
[2017-11-26 16:32] LABS: ABSOLUTE BASOPHILS # (AUTO) 0.1 10^3/uL (0.0-0.2); ABSOLUTE EOSINOPHILS # (AUTO) 0.1 10^3/uL (0.0-0.6); ABSOLUTE LYMPHOCYTES (AUTO) 3.4 10^3/uL (0.5-4.7); ABSOLUTE MONOCYTES (AUTO) 0.6 10^3/uL (0.1-1.4); ABSOLUTE NEUT (AUTO) 5.6 10^3/uL (1.7-8.2); BASOPHILS % (AUTO) 0.8 % (0-2); EOSINOPHILS % (AUTO) 1.5 % (0-6); HEMATOCRIT 41.2 % (36.0-47.0); HEMOGLOBIN 13.8 g/dL (12.0-15.5); LYMPHOCYTES % (AUTO) 34.9 % (13-45); MEAN CORPUSCULAR HGB CONC 33.5 g/dL (32.0-36.0); MEAN CORPUSCULAR VOLUME 89 fl (80-97); MONOCYTES % (AUTO) 6.3 % (3-13); PLATELET COUNT 238 10^3/uL (150-450); RED BLOOD COUNT 4.61 10^6/uL (3.72-5.28); RED CELL DISTRIBUTION WIDTH 13.7 % (11.5-14.0); SEGMENTED NEUTROPHILS % (AUTO) 56.5 % (42-78); TOTAL CELLS COUNTED % (AUTO) 100 %; WHITE BLOOD COUNT 9.8 10^3/uL (4.0-10.5)
[2017-11-26 16:38] LABS: ALANINE AMINOTRANSFERASE 21 U/L (9-52); ALBUMIN 4.4 g/dL (3.5-5.0); ALKALINE PHOSPHATASE 61 U/L (38-126); ANION GAP 10 (5-19); ASPARTATE AMINO TRANSFERASE 17 U/L (14-36); BILIRUBIN,DIRECT 0.3 mg/dL (0.0-0.4); BILIRUBIN,TOTAL 0.4 mg/dL (0.2-1.3); BLOOD UREA NITROGEN 14 mg/dL (7-20); CALCIUM 10.2 mg/dL (8.4-10.2); CARBON DIOXIDE 29 mmol/L (22-30); CHLORIDE 102 mmol/L (98-107); GLUCOSE 97 mg/dL (75-110); POTASSIUM 4.4 mmol/L (3.6-5.0); SODIUM 140.9 mmol/L (137-145); TOTAL PROTEIN 8.1 g/dL (6.3-8.2)
[2017-11-26 16:39] LABS: APPEARANCE,URINE SLIGHTLY-CLOUDY; BILIRUBIN,URINE NEGATIVE (NEGATIVE); COLOR,URINE YELLOW; GLUCOSE, URINE NEGATIVE (NEGATIVE); KETONES,URINE NEGATIVE (NEGATIVE); LEUKOCYTE ESTERASE,URINE TRACE (NEGATIVE); NITRITE,URINE NEGATIVE (NEGATIVE); PROTEIN,URINE NEGATIVE (NEGATIVE); URINE SPECIFIC GRAVITY 1.021
[2017-11-26] MEDS ORDERED: CYCLOBENZAPRINE HCL 10 MG TABLET PO ONE (18:29)
--- NOTE | 2017-11-26 18:32 | ER Document Report ---
ED GI/ - General Chief Complaint: Flank Pain Stated Complaint: BACK PAIN Time Seen by Provider: 11/26/17 18:26 Mode of Arrival: Ambulatory Information source: Patient Notes: 37-year-old female presented to ED for complaint of low back pain and flank pain with negative CT a on November 15. She states she was given antibiotics but the pain has recurred in the lumbar area. She states that she is finished and no longer has the burning and pain with urination. She states she has been taking Aleve 250 mg 2 pills 3-4 times a day. She states the pain is not getting better. Patient is alert and oriented respirations regular and unlabored speaking in full sentences. TRAVEL OUTSIDE OF THE [place] IN LAST 30 DAYS: No - HPI Patient complains to provider of: Flank pain, Other - Back pain Quality of pain: Achy, Cramping Severity at maximum: Moderate Severity in ED: Moderate Pain Level: 4 Location: Left flank, Right flank, Low back Vaginal bleeding (Compared to normal period): Spotting Associated symptoms: Other - Bilateral flank pain and low back pain for couple weeks. She states she has been taken Aleve multiple times a day.. denies: Urinary hesitancy, Urinary frequency, Urinary retention Exacerbated by: Movement Relieved by: Denies Similar symptoms previously: Yes Recently seen / treated by doctor: Yes - Related Data Allergies/Adverse Reactions: amoxicillin [Amoxicillin] Allergy (Verified 11/26/17 15:33) BLISTER IN LIPS diclofenac [From Voltaren] Allergy (Verified 11/26/17 15:33) omeprazole [From Prilosec] Allergy (Verified 11/26/17 15:33) Hives Past Medical History - General Information source: Patient - Social History Smoking Status: Current Every Day Smoker Cigarette use (# per day): Yes - Pack per day Chew tobacco use (# tins/day): No Smoking Education Provided: Yes - 4 minutes Frequency of alcohol use: None Drug Abuse: None 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 Lives with: Alone - With her children grown Family History: Reviewed & Not Pertinent Patient has suicidal ideation: No Patient has homicidal ideation: No - Past Medical History Cardiac Medical History: Reports: Hx Congestive Heart Failure - at childbirth, Hx Hypertension - "WATCHING IT" Pulmonary Medical History: Reports: Hx Pneumonia EENT Medical History: Reports: None Neurological Medical History: Reports: None Endocrine Medical History: Reports: None Renal/ Medical History: Reports: Hx Ectopic Malignancy Medical History: Reports: None GI Medical History: Reports: Hx Gastroesophageal Reflux Disease Musculoskeletal Medical History: Reports None Skin Medical History: Reports None Psychiatric Medical History: Reports: None Traumatic Medical History: Reports: None Infectious Medical History: Reports: None Past Surgical History: Reports: Hx Cholecystectomy, Hx Gynecologic Surgery - right salpingectomy due to hemorrhage from tubal ligation, Hx Tonsillectomy - adenoids, Hx Tubal Ligation - Immunizations Immunizations up to date: Yes Hx Diphtheria, Pertussis, Tetanus Vaccination: Yes - UTD Review of Systems - Review of Systems Constitutional: No symptoms reported EENT: No symptoms reported Cardiovascular: No symptoms reported Respiratory: No symptoms reported Gastrointestinal: No symptoms reported Genitourinary: Flank pain Female Genitourinary: No symptoms reported Musculoskeletal: Back pain Skin: No symptoms reported Hematologic/Lymphatic: No symptoms reported Neurological/Psychological: No symptoms reported -: Yes All other systems reviewed and negative Physical Exam - Vital signs Vitals: Temp Pulse Resp BP Pulse Ox 98.8 F 89 16 188/101 H 97 11/26/17 15:36 11/26/17 15:36 11/26/17 15:36 11/26/17 15:36 11/26/17 15:36 Interpretation: Normal, Hypertensive - General General appearance: Appears well, Alert - HEENT Head: Normocephalic, Atraumatic Eyes: Normal Pupils: PERRL - Respiratory Respiratory status: No respiratory distress Chest status: Nontender Breath sounds: Normal Chest palpation: Normal - Cardiovascular Rhythm: Regular Heart sounds: Normal auscultation Murmur: No - Abdominal Inspection: Normal Distension: No distension Bowel sounds: Normal Tenderness: Tender - Planes of generalized abdominal pain Organomegaly: No organomegaly - Back Back: Normal, Tender, CVA tenderness - Bilateral. No: Deformity/step-off, Vertebra tenderness, Scars, Scoliosis, Wounds - Extremities General upper extremity: Normal inspection, Nontender, Normal color, Normal ROM , Normal temperature General lower extremity: Normal inspection, Nontender, Normal color, Normal ROM , Normal temperature, Normal weight bearing. No: Lei's sign - Neurological Neuro grossly intact: Yes Cognition: Normal Orientation: AAOx4 Torri Coma Scale Eye Opening: Spontaneous Blanca Coma Scale Verbal: Oriented Blanca Coma Scale Motor: Obeys Commands Torri Coma Scale Total: 15 Speech: Normal Motor strength normal: LUE, RUE, LLE, RLE Sensory: Normal - Psychological Associated symptoms: Normal affect, Normal mood - Skin Skin Temperature: Warm Skin Moisture: Dry Skin Color: Normal Course - Re-evaluation Re-evalutation: 11/27/17 00:42 Discussed labs and recent CT with patient. Patient was instructed to follow-up with Dr. nunn for her knee pain and her primary care doctor for continued flank pain and elevated blood pressure. Patient was also instructed that the amount of Aleve she is taking is affecting her blood pressure and her kidneys. Patient was instructed to use Tylenol warm packs stretching exercises and ambulation for her back pain. He was also given instructions on distraction to help with her pain. Patient was instructed to follow-up with her primary doctor on Tuesday. All of her labs were negative for any acute symptoms at this time. Her previous CT was negative. - Vital Signs Vital signs: Temp Pulse Resp BP Pulse Ox 97.9 F 75 16 160/100 H 99 11/26/17 19:13 11/26/17 19:13 11/26/17 19:13 11/26/17 18:42 11/26/17 19:13 - Laboratory Result Diagrams: 11/26/17 16:11 11/26/17 16:11 Laboratory results interpreted by me: 11/26/17 16:11 Urine Urobilinogen 4.0 H Ur Leukocyte Esterase TRACE H Urine Ascorbic Acid 20 H Discharge - Discharge Clinical Impression: Flank pain, chronic Low back strain Qualifiers: Encounter type: initial encounter Qualified Code(s): S39.012A - Strain of muscle, fascia and tendon of lower back, initial encounter Condition: Stable Disposition: HOME, SELF-CARE Additional Instructions: Flank Pain We weren't able to prove an exact cause for your flank pain. Pain in the flank can be caused by a muscle strain or spasm. Sometimes a kidney stone causes pain, but can't be found on our tests. Infection in the kidney should be evident on a urine test. Early shingles can occasionally cause flank pain, without the rash that proves the diagnosis. On rare occasions, disease of the pancreas, aorta, spleen, or colon can create pain in the flank. At this time, there's no evidence of a dangerous condition, and it seems safe for you to be at home. If the pain goes away and does not come back, no further testing will be needed. If pain persists, or becomes more severe, we may need to repeat some tests or order additional new testing. Blood in the urine, urgency to urinate frequently, and pain that radiates to the groin can indicate a kidney stone. Fever may mean that the pain is due to infection, either of the kidney or the colon (diverticulitis). If your pain is early shingles, you should develop an eruption of blisters in the painful area within a few days. Call the doctor or return if you have pain that is spreading or becoming more severe, pain that does not resolve with time, fever, or any other new symptoms. LOW BACK PAIN: Three out of every four people will have an episode of disabling back pain during their lifetime. Most commonly the pain is due to straining of the muscles and ligaments in the low back. Usual treatment includes: (1) Rest on a firm surface. Avoid lying on your stomach. (2) Ice pack the painful area. After a few days, gentle heat may be used intermittently to relax the area, or ice packs can be continued. (3) Medication may be needed -- muscle relaxers and antiinflammatory medicines are commonly used. (4) As the back improves, exercises are prescribed to strengthen the back and abdominal muscles. Your doctor will advise you on the proper care for your back at each stage in your recovery. You may be better in a few days -- or healing may take several weeks. If new symptoms of a "herniated disc" (radiation of pain, numbness, or tingling down the back of the leg or weakness in the leg) occur, you should be re-examined. Further testing may be necessary. You are taking too much Aleve by taking 2 250 mg tablets 3-4 times a day. These are affecting your kidneys as well as your blood pressure. You need to reduce your Aleve to 500 mg at the most twice a day. This does affect your blood pressure and your blood pressure is elevated today at 188/101. You need to follow-up with your primary doctor promptly for your flank pain and your blood pressure. You can use Aspercreme for your back muscle pain. Also use the stretching exercises and the muscle relaxers. MUSCLE RELAXERS: Muscle relaxing medications are usually prescribed for acute muscle spasm or injury to the neck and back. They are often combined with antiinflammatory pain medication for increased relief. You may stop the muscle relaxer when the pain and stiffness have improved. Start the medication again if spasms recur. Muscle relaxers may cause drowsiness, especially with the first dose. Do not operate machinery or drive while under the effects of the medication. Most muscle relaxers last up to 24 hours. Do not combine the medication with alcohol. ICE PACKS: Apply ice packs frequently against the painful area. Many different schedules are recommended, such as "20 minutes on, 20 minutes off" or "one hour ice, two hours rest." If you need to work, you may need to go longer between ice treatments. You should plan to have the area ice packed AT LEAST one fourth of the time. The ice should be applied over the wrap, tape, or splint, or over a layer of cloth -- not directly against the skin. Some ice bags have a built-in cloth and can be put directly on the skin. WARM PACKS: After approximately two days, apply gentle heat (such as a heating pad or hot water bottle) for about 20 to 30 minutes about every two hours -- at least four times daily. Warmth and elevation will help you make a more rapid recovery , and will ease the pain considerably. Do not use HOT heat, and never apply heat for longer than 30 minutes. The continuous heat can invisibly damage skin and muscles -- even when no burn is seen on the surface. Damaged muscles can make you MORE sore. Stretching Exercises for the Back The physician has recommended that you begin stretching exercises for your back. These are often used even while the back is painful. However, you should notify the physician if the activities seem to increase your pain. PELVIC TILT: Lie flat on your back with knees bent. Tighten your stomach and buttock muscles so it flattens your lower back against the floor. Hold 10 seconds. Repeat 10 times, twice daily. KNEE RAISE: Lying on the back with knees bent, raise one knee to your chest, then the other. Hold both knees against the chest 10 seconds, then lower one knee at a time. Repeat 10 times, twice daily. PARTIAL TRUNK RAISE: Lie face down, arms at your sides. Keeping your waist on the floor, use your arms raise your chest up. Support yourself on your elbows for 30 seconds. Repeat twice daily, increasing the time to two minutes as you recover. FOLLOW-UP CARE: If you have been referred to a physician for follow-up care, call the physician s office for an appointment as you were instructed or within the next two days. If you experience worsening or a significant change in your symptoms, notify the physician immediately or return to the Emergency Department at any time for re-evaluation. Prescriptions: Cyclobenzaprine HCl [Flexeril 10 mg Tablet] 10 mg PO TIDP PRN #15 tab PRN Reason: Forms: Elevated Blood Pressure, Return to Work Referrals: ANA ROSA SABILLON MD [Primary Care Provider] - 11/28/17
[2017-11-26 18:43] VITALS: BP 160/100
== END 2017-11-26 19:13 | disposition home or self-care (01) ==
LOC: ER 15:31
DX: S39.012A Strain of muscle, fascia and tendon of lower back, initial encounter (principal); R10.9 Unspecified abdominal pain; M54.5 Low back pain; X58.XXXA Exposure to other specified factors, initial encounter; F17.210 Nicotine dependence, cigarettes, uncomplicated; I50.9 Heart failure, unspecified; I11.0 Hypertensive heart disease with heart failure; Z88.0 Allergy status to penicillin; Z90.49 Acquired absence of other specified parts of digestive tract
CPT/HCPCS: 99406; 99284; 36415; 85025; 81025; 80053; 81001; J3490

== ENCOUNTER → 2018-01-12 | Outpatient (CLI) | payer MEDICAID ==
--- NOTE | 2018-01-12 08:17 | RADIOLOGY REPORT (SQ) ---
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 Images reviewed with lung, soft tissue, and bone windows. Reconstructed coronal and sagittal MPR images revi ewed. All images stored on PACS. All CT scanners at this facility use dose modulation, iterative reconstruction, and/or weight based d osing when appropriate to reduce radiation dose to as low as reasonably achievable (ALARA). [facility]: Dose Right [facility]: CareDose [facility]: Dose Right [facility]: Teradose 4D [facility]: [employer] RADIATION DOSE: CT Rad equipment meets quality standard of care and radiation dose reduction techniq ues were employed. CTDIvol: 29.8 mGy. DLP: 1772 mGy-cm.mGy. LIMITATIONS: None. FINDINGS: LOWER CHEST: No significant findings. No nodules or infiltrates. NON-CONTRASTED LIVER, SPLEEN, ADRENALS: Evaluation limited by lack of IV contrast. No identified sign ificant masses. PANCREAS: No masses. No peripancreatic inflammatory changes. GALLBLADDER: Surgically absent RIGHT KIDNEY AND URETER: No suspicious masses. Assessment limited by lack of IV contrast. No signif icant calcifications. No hydronephrosis or hydroureter. LEFT KIDNEY AND URETER: No suspicious masses. Assessment limited by lack of IV contrast. No signifi cant calcifications. No hydronephrosis or hydroureter. AORTA AND RETROPERITONEUM: No aneurysm. No retroperitoneal masses or adenopathy. BOWEL AND PERITONEAL CAVITY: No obvious masses or inflammatory changes. No free fluid. APPENDIX: Normal. PELVIS, BLADDER, AND ABDOMINAL WALL:No abnormal masses. No free fluid. Bladder normal. Normal size u terus and ovaries. IUD in the endometrial canal BONES: No significant findings. OTHER: No other significant finding. IMPRESSION: NO SIGNIFICANT OR ACUTE PROCESS IN THE ABDOMEN OR PELVIS. COMMENT: Quality ID # [id number]: Final reports with documentation of one or more dose reduction techniques (e.g., Automated exposure control, adjustment of the mA and/or kV according to patient size, use of iterative reconstruction technique) TECHNICAL DOCUMENTATION: JOB ID: [id number] [employer]- All Rights Reserved Reading location - IP/workstation name: [email or web address]
== END ==
LOC: RAD 07:45
PROVIDERS: ATTEND Family Medicine Geriatric Medicine
DX: N39.0 Urinary tract infection, site not specified (principal); N23 Unspecified renal colic; N15.9 Renal tubulo-interstitial disease, unspecified
CPT/HCPCS: 74176

== ENCOUNTER 2018-02-14 19:55 | Emergency (ER) | payer MEDICAID ==
[2018-02-14 20:22] VITALS: BP 156/96
== END 2018-02-14 22:30 | disposition left against medical advice (07) ==
LOC: ER 19:55
DX: Z53.21 Procedure and treatment not carried out due to patient leaving prior to being seen by health care provider (principal)

== ENCOUNTER 2018-07-01 16:15 | Emergency (ER) | payer MEDICAID ==
--- NOTE | 2018-07-01 16:41 | ER Document Report ---
ED Medical Screen (RME) - General Chief Complaint: Leg Pain Stated Complaint: LEFT LEG PAIN Time Seen by Provider: 07/01/18 16:38 Mode of Arrival: Ambulatory Information source: Patient Notes: 37-year-old female presented to ED for complaint of sharp pain and soreness to the left leg from the ankle to the thigh and behind the knee. She states the whole leg is cramping. She states she had broken his legs in the past and she did not know if it was just that her why it was starting to cramp which was getting worse. She does smoke a pack a day she is also got a Mirena. Blood work and venous Doppler have been ordered. I have greeted and performed a rapid initial assessment of this patient. A comprehensive ED assessment and evaluation of the patient, analysis of test results and completion of medical decision making process will be conducted by an additional ED providers. Dictation of this chart was performed using voice recognition software; therefore, there may be some unintended grammatical errors. TRAVEL OUTSIDE OF THE [place] IN LAST 30 DAYS: No - Related Data Allergies/Adverse Reactions: amoxicillin [Amoxicillin] Allergy (Verified 07/01/18 16:18) BLISTER IN LIPS diclofenac [From Voltaren] Allergy (Verified 07/01/18 16:18) omeprazole [From Prilosec] Allergy (Verified 07/01/18 16:18) Hives Past Medical History - Social History Family history: Reviewed & Not Pertinent - Past Medical History Cardiac Medical History: Reports: Hx Congestive Heart Failure - at childbirth, Hx Hypertension - "WATCHING IT" Denies: Hx Coronary Artery Disease, Hx Heart Attack Pulmonary Medical History: Reports: Hx Pneumonia Denies: Hx Asthma, Hx Bronchitis, Hx COPD Neurological Medical History: Denies: Hx Cerebrovascular Accident, Hx Seizures Renal/ Medical History: Reports: Hx Ectopic . Denies: Hx Peritoneal Dialysis GI Medical History: Reports: Hx Gastroesophageal Reflux Disease Musculoskeltal Medical History: Denies Hx Arthritis Past Surgical History: Reports: Hx Cholecystectomy, Hx Gynecologic Surgery - right salpingectomy due to hemorrhage from tubal ligation, Hx Tonsillectomy - adenoids, Hx Tubal Ligation - Immunizations Immunizations up to date: Yes Hx Diphtheria, Pertussis, Tetanus Vaccination: Yes - UTD History of Influenza Vaccine for 11/2016 - 04/2017 Season: Refused Physical Exam - Vital signs Vitals: Temp Pulse Resp BP Pulse Ox 98.1 F 84 20 169/113 H 98 07/01/18 16:30 07/01/18 16:30 07/01/18 16:30 07/01/18 16:30 07/01/18 16:30 Course - Vital Signs Vital signs: Temp Pulse Resp BP Pulse Ox 98.1 F 84 20 169/113 H 98 07/01/18 16:30 07/01/18 16:30 07/01/18 16:30 07/01/18 16:30 07/01/18 16:30
[2018-07-01 17:15] LABS: ALANINE AMINOTRANSFERASE 28 U/L (9-52); ALBUMIN 4.1 g/dL (3.5-5.0); ALKALINE PHOSPHATASE 72 U/L (38-126); ANION GAP 9 (5-19); ASPARTATE AMINO TRANSFERASE 17 U/L (14-36); BILIRUBIN,DIRECT 0.3 mg/dL (0.0-0.4); BILIRUBIN,TOTAL 0.3 mg/dL (0.2-1.3); BLOOD UREA NITROGEN 11 mg/dL (7-20); CALCIUM 9.8 mg/dL (8.4-10.2); CARBON DIOXIDE 26 mmol/L (22-30); CHLORIDE 105 mmol/L (98-107); GLUCOSE 91 mg/dL (75-110); SODIUM 139.5 mmol/L (137-145); TOTAL PROTEIN 7.7 g/dL (6.3-8.2)
[2018-07-01 17:16] LABS: ABSOLUTE EOSINOPHILS # (AUTO) 0.1 10^3/uL (0.0-0.6); ABSOLUTE LYMPHOCYTES (AUTO) 3.2 10^3/uL (0.5-4.7); ABSOLUTE MONOCYTES (AUTO) 0.5 10^3/uL (0.1-1.4); BASOPHILS % (AUTO) 0.5 % (0-2); EOSINOPHILS % (AUTO) 1.3 % (0-6); HEMOGLOBIN 13.1 g/dL (12.0-15.5); LYMPHOCYTES % (AUTO) 46.9 % (13-45); MEAN CORPUSCULAR HEMOGLOBIN 28.6 pg (27.0-33.4); MEAN CORPUSCULAR HGB CONC 32.6 g/dL (32.0-36.0); MEAN CORPUSCULAR VOLUME 88 fl (80-97); MONOCYTES % (AUTO) 6.8 % (3-13); PLATELET COUNT 224 10^3/uL (150-450); RED BLOOD COUNT 4.57 10^6/uL (3.72-5.28); RED CELL DISTRIBUTION WIDTH 14.3 % (11.5-14.0); SEGMENTED NEUTROPHILS % (AUTO) 44.5 % (42-78); TOTAL CELLS COUNTED % (AUTO) 100 %; WHITE BLOOD COUNT 6.8 10^3/uL (4.0-10.5)
--- NOTE | 2018-07-01 19:30 | ER Document Report ---
ED Extremity Problem, Lower - General Chief Complaint: Leg Pain Stated Complaint: LEFT LEG PAIN Time Seen by Provider: 07/01/18 16:38 Mode of Arrival: Ambulatory Information source: Patient Notes: Patient presents to the emergency department with complaints of left anterior leg pain from her ankle to her knee. Patient reports this is been going on for several days. Patient reports history of old fracture to the left ankle. Patient denies any new trauma to the area. She denies any history of DVTs or PEs. She also reports her blood pressure is elevated, states that she has not taken her blood pressure Medication in 1 month due to forgetting to get the prescription filled. She states she takes hydrochlorothiazide 25 mg daily. TRAVEL OUTSIDE OF THE [place] IN LAST 30 DAYS: No - Related Data Allergies/Adverse Reactions: amoxicillin [Amoxicillin] Allergy (Verified 07/01/18 16:18) BLISTER IN LIPS diclofenac [From Voltaren] Allergy (Verified 07/01/18 16:18) omeprazole [From Prilosec] Allergy (Verified 07/01/18 16:18) Hives Past Medical History - General Information source: Patient - Social History Smoking Status: Current Every Day Smoker Family History: Reviewed & Not Pertinent Patient has suicidal ideation: No Patient has homicidal ideation: No - Past Medical History Cardiac Medical History: Reports: Hx Congestive Heart Failure - at childbirth, Hx Hypertension - "WATCHING IT" Denies: Hx Coronary Artery Disease, Hx Heart Attack Pulmonary Medical History: Reports: Hx Pneumonia Denies: Hx Asthma, Hx Bronchitis, Hx COPD Neurological Medical History: Denies: Hx Cerebrovascular Accident, Hx Seizures Renal/ Medical History: Reports: Hx Ectopic . Denies: Hx Peritoneal Dialysis GI Medical History: Reports: Hx Gastroesophageal Reflux Disease Musculoskeletal Medical History: Denies Hx Arthritis Past Surgical History: Reports: Hx Cholecystectomy, Hx Gynecologic Surgery - right salpingectomy due to hemorrhage from tubal ligation, Hx Tonsillectomy - adenoids, Hx Tubal Ligation - Immunizations Immunizations up to date: Yes Hx Diphtheria, Pertussis, Tetanus Vaccination: Yes - UTD Review of Systems - Review of Systems Constitutional: No symptoms reported EENT: No symptoms reported Cardiovascular: No symptoms reported Respiratory: No symptoms reported Gastrointestinal: No symptoms reported Genitourinary: No symptoms reported Female Genitourinary: No symptoms reported Musculoskeletal: See HPI Skin: No symptoms reported Hematologic/Lymphatic: No symptoms reported Neurological/Psychological: No symptoms reported Physical Exam - Vital signs Vitals: Temp Pulse Resp BP Pulse Ox 98.1 F 84 20 169/113 H 98 07/01/18 16:30 07/01/18 16:30 07/01/18 16:30 07/01/18 16:30 07/01/18 16:30 - Notes Notes: PHYSICAL EXAMINATION: GENERAL: Well-appearing, well-nourished and in no acute distress. HEAD: Atraumatic, normocephalic. EYES: Pupils equal round and reactive to light, extraocular movements intact, conjunctiva are normal. ENT: Nares patent, oropharynx clear without exudates. Moist mucous membranes. NECK: Normal range of motion, supple without lymphadenopathy LUNGS: Breath sounds clear to auscultation bilaterally and equal. No wheezes rales or rhonchi. HEART: Regular rate and rhythm without murmurs ABDOMEN: Soft, nontender, nondistended abdomen. No guarding, no rebound. No masses appreciated. Female : deferred Musculoskeletal: Normal range of motion, no pitting or edema. No cyanosis. No swelling or erythema noted to left lower extremity, normal popliteal and dorsalis pedis pulse. Normal motor and sensation distal to area of pain. NEUROLOGICAL: Cranial nerves grossly intact. Normal speech, normal gait. Normal sensory, motor exams PSYCH: Normal mood, normal affect. SKIN: Warm, Dry, normal turgor, no rashes or lesions noted. Course - Re-evaluation Re-evalutation: 07/01/18 19:35 CBC and CMP are unremarkable. Venous Doppler ultrasound was obtained and shows no acute DVT or SVT. All of this was discussed with patient. Patient's physical examination is unremarkable. Patient's blood pressure medication will be refilled. Patient encouraged to follow-up with her PCP as outlined in her discharge instructions. Patient verbalizes understanding and agreement with plan. - Vital Signs Vital signs: Temp Pulse Resp BP Pulse Ox 98.1 F 84 20 169/113 H 98 07/01/18 16:30 07/01/18 16:30 07/01/18 16:30 07/01/18 16:30 07/01/18 16:30 - Laboratory Result Diagrams: 07/01/18 16:44 07/01/18 16:44 Laboratory results interpreted by me: 07/01/18 16:44 RDW 14.3 H Lymphocytes % 46.9 H Discharge - Discharge Clinical Impression: Left leg pain Hypertension Qualifiers: Hypertension type: unspecified Qualified Code(s): I10 - Essential (primary) hypertension Condition: Stable Disposition: HOME, SELF-CARE Additional Instructions: You are seen today for pain to your left lower leg and high blood pressure. A prescription was written to refill your blood pressure medication. The venous Doppler ultrasound of your left lower extremity was negative. Your blood work today was normal. I recommend taking ibuprofen 600 mg every 6 hours for your leg pain. You may alternate ice and heat to the area and elevate while at home. If you continue to have pain, please see your primary care provider and they may want to consider repeating the venous Doppler ultrasound in 10 days. Please return to the emergency department for any new or worsening symptoms to include difficulty breathing, shortness of breath, sharp stabbing chest pain or any other symptom that is concerning to you. Please take your blood pressure medication as prescribed. Prescriptions: Hydrochlorothiazide [Hydrodiuril 25 mg Tablet] 25 mg PO QAM #30 tablet
[2018-07-01] MEDS ORDERED: HYDROCHLOROTHIAZIDE 25 MG TABLET PO ONE (19:45)
[2018-07-01 19:46] VITALS: BP 191/122
--- NOTE | 2018-07-01 20:01 | RADIOLOGY REPORT (SQ) ---
EXAM DESCRIPTION: VENOUS UNILATERAL LOWER COMPLETED DATE/TIME: 07/01/2018 7:13 pm REASON FOR STUDY: pain and cramping to left leg. smokes IUD COMPARISON: None. TECHNIQUE: Dynamic and static patel scale and color images acquired of the left leg venous system. Se lected spectral images acquired with additional compression and augmentation maneuvers. The contralat eral common femoral vein and saphenofemoral junction were also imaged. Images stored on PACS. LIMITATIONS: None. FINDINGS: COMMON FEMORAL: Normal phasicity, compression and augmentation. No visualized echogenic ma terial on patel scale. No defects on color images. FEMORAL: Normal compression and augmentation. No visualized echogenic material on patel scale. No defe cts on color images. POPLITEAL: Normal compression, augmentation. No visualized echogenic material on patel scale. No defec ts on color images. CALF VESSELS: Normal compression, augmentation. No visualized echogenic material on patel scale. No de fects on color images. GSV and SSV: Normal compression, augmentation. No visualized echogenic material on patel scale. No def ects on color images. ANY DEEP VENOUS INSUFFICIENCY: Not evaluated. ANY EVIDENCE OF POPLITEAL CYST: No. OTHER: No other significant finding. CONTRALATERAL COMMON FEMORAL VEIN AND SAPHENOFEMORAL JUNCTION: Normal phasicity, compression and augmentation. No visualized echogenic material on patel scale. No de fects on color images. IMPRESSION: NO EVIDENCE DVT OR SVT IN THE LEFT LEG. TECHNICAL DOCUMENTATION: JOB ID: [id number] 2010 [employer]- All Rights Reserved Reading location - IP/workstation name: [email or web address]
== END 2018-07-01 19:30 | disposition home or self-care (01) ==
LOC: ER 16:15
DX: M79.662 Pain in left lower leg (principal); I10 Essential (primary) hypertension; T50.2X6A Underdosing of carbonic-anhydrase inhibitors, benzothiadiazides and other diuretics, initial encounter; Z91.128 Patient's intentional underdosing of medication regimen for other reason; Z91.14 Patient's other noncompliance with medication regimen; Z88.0 Allergy status to penicillin; Z88.8 Allergy status to other drugs, medicaments and biological substances; F17.200 Nicotine dependence, unspecified, uncomplicated
CPT/HCPCS: 99284; 36415; 85025; 80053; 93971; J3490

== ENCOUNTER → 2019-07-03 | Outpatient (CLI) | payer MEDICAID ==
[2019-07-03 10:34] LABS: ABSOLUTE BASOPHILS # (AUTO) 0.1 10^3/uL (0.0-0.2); ABSOLUTE EOSINOPHILS # (AUTO) 0.1 10^3/uL (0.0-0.6); ABSOLUTE LYMPHOCYTES (AUTO) 2.8 10^3/uL (0.5-4.7); ABSOLUTE MONOCYTES (AUTO) 0.5 10^3/uL (0.1-1.4); ABSOLUTE NEUT (AUTO) 5.6 10^3/uL (1.7-8.2); EOSINOPHILS % (AUTO) 0.6 % (0-6); HEMATOCRIT 37.7 % (36.0-47.0); HEMOGLOBIN 12.8 g/dL (12.0-15.5); LYMPHOCYTES % (AUTO) 31.3 % (13-45); MEAN CORPUSCULAR HGB CONC 33.8 g/dL (32.0-36.0); MEAN CORPUSCULAR VOLUME 86 fl (80-97); PLATELET COUNT 253 10^3/uL (150-450); RED CELL DISTRIBUTION WIDTH 14.2 % (11.5-14.0); SEGMENTED NEUTROPHILS % (AUTO) 61.1 % (42-78); TOTAL CELLS COUNTED % (AUTO) 100 %; WHITE BLOOD COUNT 9.1 10^3/uL (4.0-10.5)
[2019-07-03 10:58] LABS: ALBUMIN 4.5 g/dL (3.5-5.0); ALKALINE PHOSPHATASE 80 U/L (38-126); ANION GAP 8 (5-19); ASPARTATE AMINO TRANSFERASE 17 U/L (14-36); BILIRUBIN,TOTAL 0.4 mg/dL (0.2-1.3); BLOOD UREA NITROGEN 11 mg/dL (7-20); CALCIUM 9.8 mg/dL (8.4-10.2); CARBON DIOXIDE 32 mmol/L (22-30); CHLORIDE 97 mmol/L (98-107); CHOLESTEROL 141.74 mg/dL (0-200); GLUCOSE 103 mg/dL (75-110); POTASSIUM 4.2 mmol/L (3.6-5.0); TRIGLYCERIDES 43 mg/dL (<150)
[2019-07-03 11:08] LABS: DIRECT LDL 71 mg/dL (<100)
== END ==
LOC: OD 09:53
PROVIDERS: ATTEND Family Medicine Geriatric Medicine
DX: I10 Essential (primary) hypertension (principal); Z79.899 Other long term (current) drug therapy
CPT/HCPCS: 36415; 80053; 80061; 84443; 85025

== ENCOUNTER → 2019-07-03 | Outpatient (CLI) | payer MEDICAID ==
--- NOTE | 2019-07-03 09:40 | RADIOLOGY REPORT (SQ) ---
EXAM DESCRIPTION: U/S NON-OB PELVIS TV W/O DOP IMAGES COMPLETED DATE/TIME: 07/03/2019 9:26 am REASON FOR STUDY: N93.8 OTHER SPECIFIED ABNORMAL UTERINE AND VAGINAL BLEEDING, N92.0 EXCESSIV N93.8 OTHER SPECIFIED ABNORMAL UTERINE AND VAGINAL BLEEDING N92.0 EXCESSIVE AND FREQUENT MENSTRUATION WIT H REGULAR CYCLE COMPARISON: None. TECHNIQUE: Dynamic and static grayscale images acquired of the pelvis via transvaginal approach and recorded on PACS. Additional selected color Doppler and spectral images recorded. LIMITATIONS: Limited evaluation due to body habitus. . FINDINGS: UTERUS: Enlarged heterogeneous uterus measuring 13.1 x 6.3 x 5.7. There are multiple hypo echoic masses most compatible with fibroids. There is a 1.7 x 1.3 x 1.5 cm subserosal fibroid. Bruce tional intramural fibroids within the uterine body measuring 2.4 x 2.2 x 1.8 cm and 2.7 x 2.2 x 2.4 c m. Small intramural cystic area measuring 1.3 x 1.0 x 0.8 cm. ENDOMETRIAL STRIPE: Endometrial stripe is visualized measuring 4 mm. CERVIX: No nabothian cysts. RIGHT OVARY AND DOPPLER: Normal size measuring 1.9 x 2.4 x 1.4 cm. No worrisome masses. Normal arteri al vascular flow without evidence for torsion. LEFT OVARY AND DOPPLER: Normal size measuring 3.6 x 3.0 x 1.7 cm. No worrisome masses. Normal arteria l vascular flow without evidence for torsion. FREE FLUID: None noted. OTHER: No other significant finding. IMPRESSION: 1. Enlarged heterogeneous uterus with multiple hypoechoic masses most compatible with f ibroids, largest measuring 2.7 x 2.4 x 2.2 cm. 2. Unremarkable bilateral ovaries. TECHNICAL DOCUMENTATION: JOB ID: [id number] 2010 [employer]- All Rights Reserved Rev-07/01 Reading location - IP/workstation name: [email or web address]
== END ==
LOC: RAD 08:36
PROVIDERS: ATTEND Family Medicine Geriatric Medicine
DX: N93.8 Other specified abnormal uterine and vaginal bleeding (principal)
CPT/HCPCS: 76830

== ENCOUNTER 2019-08-20 07:00 | Inpatient (IN) | payer MEDICAID ==
[2019-08-15 10:44] LABS: HEMATOCRIT 37.5 % (36.0-47.0); HEMOGLOBIN 12.6 g/dL (12.0-15.5); MEAN CORPUSCULAR HGB CONC 33.6 g/dL (32.0-36.0); MEAN CORPUSCULAR VOLUME 86 fl (80-97); PLATELET COUNT 214 10^3/uL (150-450); RED BLOOD COUNT 4.33 10^6/uL (3.72-5.28); RED CELL DISTRIBUTION WIDTH 14.3 % (11.5-14.0); WHITE BLOOD COUNT 6.9 10^3/uL (4.0-10.5)
[2019-08-15 10:53] LABS: APPEARANCE,URINE CLEAR; BILIRUBIN,URINE NEGATIVE (NEGATIVE); COLOR,URINE YELLOW; GLUCOSE, URINE NEGATIVE (NEGATIVE); KETONES,URINE NEGATIVE (NEGATIVE); LEUKOCYTE ESTERASE,URINE TRACE (NEGATIVE); NITRITE,URINE NEGATIVE (NEGATIVE); PROTEIN,URINE 30 mg/dL (NEGATIVE); URINE SPECIFIC GRAVITY 1.032
[2019-08-15 11:01] LABS: ALBUMIN 4.3 g/dL (3.5-5.0); ALKALINE PHOSPHATASE 71 U/L (38-126); ANION GAP 7 (5-19); ASPARTATE AMINO TRANSFERASE 15 U/L (14-36); BILIRUBIN,TOTAL 0.3 mg/dL (0.2-1.3); BLOOD UREA NITROGEN 15 mg/dL (7-20); CALCIUM 9.6 mg/dL (8.4-10.2); CARBON DIOXIDE 28 mmol/L (22-30); CHLORIDE 102 mmol/L (98-107); GLUCOSE 100 mg/dL (75-110); POTASSIUM 3.8 mmol/L (3.6-5.0); TOTAL PROTEIN 8.1 g/dL (6.3-8.2)
--- NOTE | 2019-08-15 11:13 | EKG REPORT ---
SEVERITY:- ABNORMAL ECG - SINUS RHYTHM FIRST DEGREE AV BLOCK LEFT VENTRICULAR HYPERTROPHY : Confirmed by: Staci Nicolas MD 15-Aug-2019 11:12:22
[~2019-08-20 07:00] MED LIST: CEFAZOLIN 2 GM/D5W RTU 2 GM/50 ML RTUPB IV ONE
[2019-08-20] MEDS ORDERED: FENTANYL CITRATE INJ/PF 250 MCG/5 ML AMPULE ONE (08:38)
[2019-08-20] MEDS ORDERED: PROPOFOL INJ 200 MG/20 ML VIAL IV ONE (08:38)
[2019-08-20] MEDS ORDERED: HYDROMORPHONE HCL INJ/PF 2 MG/ML AMPULE ONE (08:38)
[2019-08-20] MEDS ORDERED: ESMOLOL HCL INJ/PF 100 MG/10 ML SDV IV ONE (09:00)
[2019-08-20] MEDS ORDERED: LABETALOL HCL INJ 20 MG/4 ML DISP.SYRIN IV ONE (09:08)
[2019-08-20] MEDS ORDERED: HYDRALAZINE HCL INJ/PF 20 MG/1 ML SDV ONE (09:47)
[2019-08-20] MEDS ORDERED: FENTANYL CITRATE INJ/PF 100 MCG/2 ML AMPUL ONE (09:48)
[2019-08-20] MEDS ORDERED: MORPHINE SULFATE 10 MG/ML INJ IV PRN (10:02)
[2019-08-20] MEDS ORDERED: FENTANYL CITRATE INJ/PF 100 MCG/2 ML AMPUL IV PRN (10:02)
[2019-08-20] MEDS ORDERED: DIPHENHYDRAMINE HCL 50 MG/ML VIAL IV PRN (10:02)
[2019-08-20] MEDS ORDERED: MEPERIDINE HCL/PF INJ 25 MG/1 ML DISP.SYRIN IV PRN (10:02)
[2019-08-20] MEDS ORDERED: PROMETHAZINE HCL INJ 25 MG/1 ML VIAL IV PRN ×2 (10:02→10:24)
[2019-08-20] MEDS ORDERED: ACETAMINOPHEN 1,000 MG/100 ML RTUPB IV PRN (10:24)
[2019-08-20] MEDS ORDERED: SIMETHICONE 80 MG TAB.CHEW PO PRN (10:24)
[2019-08-20] MEDS ORDERED: ACETAMINOPHEN 325 MG TABLET PO PRN (10:24)
[2019-08-20] MEDS ORDERED: OXYCODONE-ACETAMINOPHEN 5-325 MG TABLET PO PRN (10:24)
[2019-08-20] MEDS ORDERED: DIPH/PERTUSS(ACELL)/TETANUS VAC/PF 0.5 ML SYR (>=10YO) IM PRN (10:24)
[2019-08-20] MEDS ORDERED: MEASLES,MUMPS&RUBELLA VACC/PF 0.5 ML VIAL SUBCUT PRN (10:24)
--- NOTE | 2019-08-20 10:34 | Operative Report ---
Operative Report DATE OF SURGERY: 08/20/19 PREOPERATIVE DIAGNOSIS: Uterine fibroids dysmenorrhea menorrhagia POSTOPERATIVE DIAGNOSIS: Same OPERATION: Abdominal hysterectomy with bilateral salpingectomy SURGEON: ROSA CHAN CLINICAL CARE MANAGER: ASIM BEARD ANESTHESIA: GA TISSUE REMOVED OR ALTERED: Uterus fallopian tubes cervix COMPLICATIONS: None ESTIMATED BLOOD LOSS: 125 cc INTRAOPERATIVE FINDINGS: Fibroid uterus with adhesions PROCEDURE: Patient was taken the OR placed in supine position. General anesthesia was induced. Her perineum vagina and abdomen were prepared and draped in sterile fashion. A Navarro was placed for drainage of the bladder. A low transverse incision was made and carried down to level the fascia which was nicked in the midline. The fascial incision was extended bilaterally using curved Espinosa scissors. Peritoneum was entered without incident. The Mobius retractor was placed. The bowel contents were packed back with 3 moist lap sponges. The uterus was grasped with a Mickey thyroid clamp. The fallopian tubes were removed with the LigaSure device. These were passed off the field for specimen. The ovaries appeared normal and were left in place. Next the round ligaments were divided by clamping with the LigaSure device cauterizing and cutting the round ligaments. The anterior leaf the broad ligament was incised creating a bladder flap. Next the utero-ovarian pedicles were clamped cauterized and cut using the LigaSure device. The posterior leaf the broad ligament was incised with Metzenbaums exposing the uterine arteries bilaterally. The anterior leaf the broad ligament was taken off the cervix creating a bladder flap. This was done with sharp and blunt dissection. The uterine arteries were skeletonized and then clamped with the LigaSure device cauterized and cut bilaterally. Obvious blanching of the uterus was noted at this point. Next the cardinal ligaments were clamped cut and ligated using a straight Sherice clamp and transfixation suture of 0 Vicryl. This was done bilaterally. Upon reaching the vaginal angles the vaginal angles were clamped with curved Sherice clamp cut and then ligated with a transfixation suture of 0 Vicryl. The cervix was excised free from the vaginal cuff. The vaginal cuff was closed with interrupted sutures of 0 Vicryl. The pelvis was irrigated and suctioned free of fluid hemostasis was assured. The lap sponges were removed from the pelvis the Mobius retractor was removed. The anterior abdominal wall peritoneum was closed with a 2-0 chromic stitch. Next the subcu space was irrigated with fluid and suctioned free. The subcu layer was closed with a 2-0 plain gut stitch and skin closed with 4-0 undyed Vicryl stitch. Patient was extubated in the OR and taken to recovery in stable condition.
[2019-08-20] MEDS: MORPHINE SULFATE 10 MG/ML INJ ONE ×2 (11:08→11:15)
[2019-08-20] MEDS: HYDROMORPHONE HCL INJ/PF 2 MG/ML AMPULE IV PRN ×2 (12:25→22:38)
[2019-08-20] MEDS: RINGERS SOLUTION,LACTATED 1,000 ML IV PRN ×2 (12:27→21:15)
[2019-08-20] MEDS ORDERED: SUCCINYLCHOLINE CHLORIDE INJ 200 MG/10 ML VIAL ONE (14:33)
[2019-08-20] MEDS ORDERED: DEXAMETHASONE SOD PHOSPHATE INJ 4 MG/1 ML VIAL ONE (14:33)
[2019-08-20] MEDS ORDERED: GLYCOPYRROLATE 1 MG/5 ML VIAL ONE (14:33)
[2019-08-20] MEDS ORDERED: NEOSTIGMINE METHYLSULFATE 10 MG/10 ML VIAL ONE (14:33)
[2019-08-20] MEDS ORDERED: ROCURONIUM BROMIDE INJ 50 MG/5 ML VIAL IV ONE (14:33)
[2019-08-20] MEDS ORDERED: LIDOCAINE 2% INJ-PF (20 MG/ML) 2 ML AMPUL ONE (14:33)
[2019-08-20] MEDS ORDERED: KETOROLAC TROMETHAMINE 60 MG/2 ML SDV ONE (14:33)
[2019-08-20] MEDS ORDERED: ONDANSETRON HCL INJ/PF 4 MG/2 ML SDV ONE (14:33)
[2019-08-20] MEDS: KETOROLAC TROMETHAMINE INJ/PF 30 MG/1 ML SDV IV SCH ×2 (14:40→21:05)
[2019-08-20] MEDS ORDERED: HYDROCHLOROTHIAZIDE 25 MG TABLET PO ONE (15:45)
[2019-08-20 15:58] LABS: HEMATOCRIT 36.9 % (36.0-47.0); HEMOGLOBIN 12.2 g/dL (12.0-15.5); MEAN CORPUSCULAR HEMOGLOBIN 28.3 pg (27.0-33.4); MEAN CORPUSCULAR HGB CONC 32.9 g/dL (32.0-36.0); MEAN CORPUSCULAR VOLUME 86 fl (80-97); PLATELET COUNT 254 10^3/uL (150-450); RED CELL DISTRIBUTION WIDTH 14.4 % (11.5-14.0); WHITE BLOOD COUNT 12.9 10^3/uL (4.0-10.5)
[2019-08-20 16:06] LABS: ANION GAP 9 (5-19); BLOOD UREA NITROGEN 11 mg/dL (7-20); CALCIUM 9.6 mg/dL (8.4-10.2); CARBON DIOXIDE 26 mmol/L (22-30); CHLORIDE 100 mmol/L (98-107); GLUCOSE 116 mg/dL (75-110); POTASSIUM 3.8 mmol/L (3.6-5.0)
[2019-08-20] MEDS: OXYCODONE-ACETAMINOPHEN 5-325 MG TABLET PO PRN ×2 (16:20→21:04)
[2019-08-20] MEDS ORDERED: BUPROPION HCL 75 MG TABLET PO ONE (16:30)
[2019-08-20] MEDS: DOCUSATE SODIUM 100 MG CAPSULE PO SCH (17:18)
[2019-08-20] MEDS ORDERED: HYDRALAZINE HCL INJ/PF 20 MG/1 ML SDV IV ONE ×2 (18:30→21:00)
[2019-08-20] MEDS ORDERED: HYDRALAZINE HCL INJ/PF 20 MG/1 ML SDV IV PRN (22:36)
[2019-08-21] MEDS: OXYCODONE-ACETAMINOPHEN 5-325 MG TABLET PO PRN ×2 (02:43→07:18)
[2019-08-21] MEDS ORDERED: HYDRALAZINE HCL INJ/PF 20 MG/1 ML SDV ONE (04:19)
[2019-08-21] MEDS: RINGERS SOLUTION,LACTATED 1,000 ML IV PRN (04:30)
[2019-08-21] MEDS: KETOROLAC TROMETHAMINE INJ/PF 30 MG/1 ML SDV IV SCH (05:05)
[2019-08-21 07:38] LABS: HEMATOCRIT 36.1 % (36.0-47.0); MEAN CORPUSCULAR HEMOGLOBIN 28.4 pg (27.0-33.4); MEAN CORPUSCULAR HGB CONC 33.3 g/dL (32.0-36.0); MEAN CORPUSCULAR VOLUME 85 fl (80-97); PLATELET COUNT 240 10^3/uL (150-450); RED BLOOD COUNT 4.23 10^6/uL (3.72-5.28); RED CELL DISTRIBUTION WIDTH 14.4 % (11.5-14.0); WHITE BLOOD COUNT 10.2 10^3/uL (4.0-10.5)
[2019-08-21] MEDS ORDERED: PRENATAL VITAMIN W DHA CAPSULE PO SCH (10:00)
[2019-08-21] MEDS ORDERED: BUPROPION HCL 75 MG TABLET PO SCH (10:00)
[2019-08-21] MEDS ORDERED: HYDROCHLOROTHIAZIDE 25 MG TABLET PO SCH (10:00)
[2019-08-21] MEDS ORDERED: AMLODIPINE BESYLATE 5 MG TABLET PO SCH (10:00)
[2019-08-21] MEDS: DOCUSATE SODIUM 100 MG CAPSULE PO SCH (10:35)
--- NOTE | 2019-08-21 10:52 | PDOC DISCHARGE SUMMARY ---
Impression - Admit/DC Date/PCP Admission Date/Primary Care Provider: 08/20/19 07:00 ANA ROSA SABILLON MD Discharge Date: 08/21/19 - Discharge Diagnosis (1) Fibroids Is this a current diagnosis for this admission?: Yes - Assessment Summary: The pt was admitted for fibroids and bleeding to undergo a hysterectomy. This was done yesterday and she did well. Please see the operative report. She did well the night of surgery. There were some issues with blood pressure control. Today she is doing well. She will be sent home to rest. Followup in one week. - Additional Information Resuscitation Status: Full Code Discharge Diet: As Tolerated Discharge Activity: No Lifting/Push/Pulling, Pelvic Rest Referrals: ANA ROSA SABILLON MD [Primary Care Provider] - Home Medications: Hydrochlorothiazide [Hydrodiuril 25 mg Tablet] 25 mg PO QAM #30 tablet 07/01/18 Amlodipine Besylate [Norvasc 5 mg Tablet] 5 mg PO DAILY 08/15/19 Medroxyprogesterone Acetate [Provera] 10 mg PO DAILY 08/15/19 Bupropion HCl [Bupropion HCl Sr] 150 mg PO DAILY 08/20/19 Hydrocodone/Acetaminophen [[place] 5-325 Tablet] 1 each PO Q6HP PRN 08/20/19 History of Present Illiness History of Present Illness: KEVIN CASTRO is a 38 year old female Physical Exam - Physical Exam Vital Signs: Temp Pulse Resp BP Pulse Ox 98.1 F 95 15 155/88 H 100 08/21/19 08:22 08/21/19 08:22 08/21/19 08:22 08/21/19 07:07 08/21/19 08:22 Intake & Output 08/20/19 08/21/19 08/22/19 06:59 06:59 06:59 Intake Total 4956 275 Output Total 3860 300 Balance 1096 -25 Weight 133.2 kg Results Laboratory Results: WBC 10.2 10^3/uL (4.0-10.5) 08/21/19 07:18 RBC 4.23 10^6/uL (3.72-5.28) 08/21/19 07:18 Hgb 12.0 g/dL (12.0-15.5) 08/21/19 07:18 Hct 36.1 % (36.0-47.0) 08/21/19 07:18 MCV 85 fl (80-97) 08/21/19 07:18 MCH 28.4 pg (27.0-33.4) 08/21/19 07:18 MCHC 33.3 g/dL (32.0-36.0) 08/21/19 07:18 RDW 14.4 % (11.5-14.0) H 08/21/19 07:18 Plt Count 240 10^3/uL (150-450) 08/21/19 07:18 Sodium 134.8 mmol/L (137-145) L 08/20/19 14:52 Potassium 3.8 mmol/L (3.6-5.0) 08/20/19 14:52 Chloride 100 mmol/L (98-107) 08/20/19 14:52 Carbon Dioxide 26 mmol/L (22-30) 08/20/19 14:52 Anion Gap 9 (5-19) 08/20/19 14:52 BUN 11 mg/dL (7-20) 08/20/19 14:52 Creatinine 0.62 mg/dL (0.52-1.25) 08/20/19 14:52 Est GFR ( Amer) > 60 (>60) 08/20/19 14:52 Est GFR (MDRD) Non-Af > 60 (>60) 08/20/19 14:52 Glucose 116 mg/dL (75-110) H 08/20/19 14:52 Calcium 9.6 mg/dL (8.4-10.2) 08/20/19 14:52 Total Bilirubin 0.3 mg/dL (0.2-1.3) 08/15/19 09:46 Direct Bilirubin 0.0 mg/dL (0.0-0.4) 08/15/19 09:46 Neonat Total Bilirubin Not Reportable 08/15/19 09:46 Neonat Direct Bilirubin Not Reportable 08/15/19 09:46 Neonat Indirect Bili Not Reportable 08/15/19 09:46 AST 15 U/L (14-36) 08/15/19 09:46 ALT 13 U/L (<35) 08/15/19 09:46 Alkaline Phosphatase 71 U/L (38-126) 07/01/20 09:46 Total Protein 8.1 g/dL (6.3-8.2) 08/15/19 09:46 Albumin 4.3 g/dL (3.5-5.0) 08/15/19 09:46 Serum HCG, Qual NEGATIVE (NEGATIVE) 08/20/19 07:22 Urine Color YELLOW 08/15/19 10:00 Urine Appearance CLEAR 08/15/19 10:00 Urine pH 5.0 (5.0-9.0) 08/15/19 10:00 Ur Specific [place] 1.032 08/15/19 10:00 Urine Protein 30 mg/dL (NEGATIVE) H 08/15/19 10:00 Urine Glucose (UA) NEGATIVE mg/dL (NEGATIVE) 08/15/19 10:00 Urine Ketones NEGATIVE mg/dL (NEGATIVE) 08/15/19 10:00 Urine Blood SMALL (NEGATIVE) H 08/15/19 10:00 Urine Nitrite NEGATIVE (NEGATIVE) 08/15/19 10:00 Urine Bilirubin NEGATIVE (NEGATIVE) 08/15/19 10:00 Urine Urobilinogen 2.0 mg/dL (<2.0) H 08/15/19 10:00 Ur Leukocyte Esterase TRACE (NEGATIVE) H 08/15/19 10:00 Urine WBC (Auto) 6 /HPF 08/15/19 10:00 Urine RBC (Auto) 6 /HPF 08/15/19 10:00 U Hyaline Cast (Auto) 2 /LPF 08/15/19 10:00 Squamous Epi Cells Auto 3 /HPF 08/15/19 10:00 Urine Mucus (Auto) MANY /LPF 08/15/19 10:00 Urine Ascorbic Acid NEGATIVE (NEGATIVE) 08/15/19 10:00 COVID-19 Source NASOPHARYNGEAL 08/15/19 09:25 COVID-19 (WISAM) NOT DETECTED 08/15/19 09:25 Blood Type AB POSITIVE 08/15/19 09:46 Antibody Screen NEGATIVE 08/15/19 09:46 Stroke Is this a Stroke Patient?: No Acute Heart Failure - Is this a Heart Failure Patient?: No
[2019-08-21] MEDS: HYDROMORPHONE HCL INJ/PF 2 MG/ML AMPULE IV PRN (11:17)
[2019-08-21 11:25] VITALS: BP 149/76
[2019-08-21] MEDS ORDERED: IBUPROFEN 800 MG TABLET PO SCH (12:00)
== END 2019-08-21 14:15 | disposition home or self-care (01) | DRG 743 ==
LOC: INOR 07:00 → 2N 12:00
PROVIDERS: ADMIT Obstetrics & Gynecology; ATTEND Obstetrics & Gynecology Gynecology
PROC: 0UT70ZZ Resection of Bilateral Fallopian Tubes, Open Approach (ICD-10-PCS; 2019-08-20)
PROC: 0UT90ZZ Resection of Uterus, Open Approach (ICD-10-PCS; principal; 2019-08-20 09:00)
DX: D25.1 Intramural leiomyoma of uterus (principal); D25.2 Subserosal leiomyoma of uterus; I10 Essential (primary) hypertension; N73.6 Female pelvic peritoneal adhesions (postinfective); F17.210 Nicotine dependence, cigarettes, uncomplicated; N94.6 Dysmenorrhea, unspecified; D64.9 Anemia, unspecified; N92.0 Excessive and frequent menstruation with regular cycle; Z03.818 Encounter for observation for suspected exposure to other biological agents ruled out; Z88.0 Allergy status to penicillin
CPT/HCPCS: 36415; 80048; 80053; 81001; 840; 84132; 84703; 85027; 86850; 86900; 86901; 87635; 88307; 93005; 93010; 94799; C9803; J0330; J0360; J0690; J1100; J1170; J1885; J2270; J2405; J2550; J2704; J2710; J3010; J3490; J7120